=== PATIENT | female | born 1980 | race Caucasian/White ===

== ENCOUNTER 2016-12-16 17:10 | Inpatient (IN) | payer MEDICAID ==
[~2016-12-16] VITALS: Ht 160 cm; Wt 59.0 kg
[~2016-12-16 17:10] MED LIST: ACYCLOVIR400 MG PO; BACTRIM DS1 TAB PO; CELEXA20 M1 OR; CELEXA40 M1 PO; ERRIN0.35 MG PO; HUMULI1 SC; HUMULIN R1 M1 SC; KEFLEX500 MG PO; LANTUS100 MG/ML SC; LIDOCAINE5 % EX; LISINOPRIL10 MG PO; LISINOPRIL2.5 MG PO; LISINOPRIL5 MG PO; LORTAB 5 OR; LORTAB 5-325 MG1 TAB PO; LORTAB 7.5 PO; NAPROSYN500 MG PO; NOVOLIN 70/30; NOVOLIN 70/30 SC; NOVOLIN R IJ; NOVOLOG MIX100 U/ML SC; TRAMADOL HCL50 MG PO; TYLENOL # 31 TA1 PO; ULTRAM50 M1 OR; ZESTRIL5 MG OR; ZYRTEC10 M2 PO; [UNRECOGNIZED DRUG - OTHER]; tylenol#3 PO
--- NOTE | 2016-12-16 17:10 | NUR ---
PT CARRIED TO ROOM 10 BY CHRISTINE. PT FOUND MOANING W/LABORED BREATHING IN HER RESIDENCE.
--- NOTE | 2016-12-16 17:25 | NUR ---
PT VOIDED APPROX 800ML YELLOW CLOUDY URINE IN BEDPAN PRIOR TO PLACEMENT OF ORO CATH.
[2016-12-16 18:03] LABS: HEMATOCRIT 46.6 % (37.0-47.0); IMMATURE GRANULOCYTES 3.2 % (0.0-1.0); MEAN CELL VOLUME 97.7 fL CALC (80.0-100.0); MEAN CORPUSCULAR HGB 33.5 pG CALC (26.0-32.0); MEAN CORPUSCULAR HGB CONC 34.3 g/L CALC (32.0-36.0); PLATELET COUNT 487 thou/uL (130-400); RED BLOOD COUNT 4.77 mill/uL (4.20-5.60)
[2016-12-16 18:17] LABS: URINE BILIRUBIN - DIPSTICK NEGATIVE (NEGATIVE); URINE BLOOD DIPSTICK LARGE (NEGATIVE); URINE CLARITY CLEAR; URINE COLOR YELLOW; URINE GLUCOSE - DIPSTICK >=1000 mg/dL (NEGATIVE); URINE KETONE >=80 mg/dL (NEGATIVE); URINE LEUK ESTERASE TRACE (NEGATIVE); URINE NITRITE - DIPSTICK NEGATIVE (Negative); URINE PROTEIN - DIPSTICK 30 mg/dL (NEG-TRACE); URINE SPECIFIC GRAVITY 1.025; URINE UROBILINOGEN - DIPSTICK 0.2 E.U./dL (0.2)
[2016-12-16 18:26] LABS: MANUAL DIFFERENTIAL YES
[2016-12-16 18:32] LABS: URINE RBC TNTC RBC/hpf (0-5); URINE SQUAMOUS EPITHELIAL CELL FEW EPI/hpf (0-FEW); URINE TRICHOMONAS FEW hpf
[2016-12-16 18:33] LABS: BARBITURATES NEGATIVE (NEGATIVE); COCAINE NEGATIVE (NEGATIVE); METHADONE NEGATIVE (NEGATIVE); OXCYCODONE NEGATIVE (NEGATIVE); TETRAHYDROCANNABIONOL NEGATIVE (NEGATIVE); TRICYLIC ANTIDEPRESSANTS NEGATIVE (NEGATIVE)
[2016-12-16 18:39] LABS: BAND 5 % (0-8)
[2016-12-16 18:43] LABS: ALBUMIN 4.9 g/dL (3.2-5.0); ALKALINE PHOSPHATASE 178 u/l (38-126); BILIRUBIN, TOTAL 0.4 mg/dL (0.0-1.4); BUN 10 mg/dL (7-17); BUN/CREATININE RATIO 11 (12-20 (CALC)); CALCIUM 8.8 mg/dL (8.4-10.2); CHLORIDE 103 mmol/l (95-108); CREATININE 0.9 mg/dL (0.5-1.0); GFR > 60 ML/MIN (>=60 (CALC)); GFR FOR AFR.AMER. > 60 ML/MIN (>=60 (CALC)); POTASSIUM 4.5 mmol/l (3.5-5.1); SGOT/AST 17 u/l (14-36); SGPT/ALT 29 u/l (9-52); SODIUM 136 mmol/l (137-146); TOTAL PROTEIN 7.6 g/dL (6.3-8.2)
[2016-12-16 18:46] LABS: ANION GAP 33 (6-22 (CALC)); CARBON DIOXIDE < 5 mmol/l (22-30); GLUCOSE 573 mg/dL (65-105)
--- NOTE | 2016-12-16 18:50 | NUR ---
IV SITE TO RAC INFILTRATED. LABORED BREATHING. MD AT BEDSIDE PLACING CENTRAL RIGHT SUBCLAVIAN LINE.
[2016-12-16 19:01] LABS: MYOGLOBIN 33 ng/mL (0 - 62)
--- NOTE | 2016-12-16 19:29 | NUR ---
REPORT PROVIDED TO ALEXEY CAUSEY.
--- NOTE | 2016-12-16 19:30 | NUR ---
REPORT RECEIVED CARE ASSUMED. PATIENT RESTING ON STRETCHER. AWAKENS TO NAME, HOWEVER IS QUICK TO DRIFT OFF TO SLEEP. ACCU CHECK 418. PATIENT TO BE ADMITTED. SIG OTHER INFORMED OF PLAN OF CARE.
--- NOTE | 2016-12-16 20:05 | NUR ---
REPORT CALLED TO LETICIA. PATIENT READIED FOR TRANSPORT TO FLOOR.
--- NOTE | 2016-12-16 20:30 | NUR ---
MEDICATED PER MD ORDERS. BELONGINGS SENT WITH SO.
--- NOTE | 2016-12-16 20:33 | NUR ---
ACCU CHECK 296. INSULIN GTT STARTED AT 3 UNITS/HOUR PER SLIDING SCALE. WILL MONITOR FOR EFFECT.
--- NOTE | 2016-12-16 20:35 | NUR ---
ORO BAG EMPTIED OF 1450ML CLEAR YELLOW URINE.
--- NOTE | 2016-12-16 20:40 | NUR ---
36 yr old white female admitted icu5 per stretcher from er. transferred x4 to bed. pt very lethargic. does not answer questions asked. environmental monitoring technician shows sinus tach. rt tlc in place. rl bolus & insulin gtt conts. finley cath in place draining lg amt yellow urine. unable to obtain hx from pt. history obtained per fiance, er record & old chart. oriented to room. fall precautions initiated.
--- NOTE | 2016-12-16 20:45 | NUR ---
PATIENT TO FLOOR, ON MONMITOR, VIA STRETCHER, WITH RN
[2016-12-16 21:00] VITALS: BP 118/76
[2016-12-16 21:15] VITALS: BP 126/74
--- NOTE | 2016-12-16 21:15 | NUR ---
multi visitors @ bedside.
[2016-12-16 21:30] VITALS: BP 142/75
--- NOTE | 2016-12-16 21:30 | NUR ---
jossy admits "no more insulin @ home. last dose was @ 10 this morning. had an appt yesterday but the drs office cancelled it." he also admits she goes to the clinic on [facility].
[2016-12-16 21:45] VITALS: BP 154/71
[2016-12-16 21:59] VITALS: BP 140/65
--- NOTE | 2016-12-16 22:00 | NUR ---
eyes closed. cont to be tachypnic. no distress. finley conts to drain well. monitor shows sinus tach.
--- NOTE | 2016-12-16 23:05 | NUR ---
blood drawn & sent to lab.
[2016-12-16 23:44] LABS: BUN 6 mg/dL (7-17); BUN/CREATININE RATIO 12 (12-20 (CALC)); CALCIUM 6.9 mg/dL (8.4-10.2); CREATININE 0.5 mg/dL (0.5-1.0); GFR > 60 ML/MIN (>=60 (CALC)); GFR FOR AFR.AMER. > 60 ML/MIN (>=60 (CALC)); GLUCOSE 282 mg/dL (65-105); POTASSIUM 3.1 mmol/l (3.5-5.1); SODIUM 142 mmol/l (137-146)
[2016-12-16 23:55] LABS: ANION GAP 24 (6-22 (CALC))
[2016-12-16 23:56] LABS: CARBON DIOXIDE 6 mmol/l (22-30); CHLORIDE 115 mmol/l (95-108)
[2016-12-17] VITALS (12 sets, daily range): BP systolic 102–131; BP diastolic 48–80
--- NOTE | 2016-12-17 00:02 | NUR ---
lab results rec'd. dr baer notified. no new orders.
--- NOTE | 2016-12-17 00:45 | NUR ---
spoke with katina @ [facility] & requested potassium to be verified.
--- NOTE | 2016-12-17 01:04 | NUR ---
med verified per pharm. supervisor cooler service notified of need for med.
--- NOTE | 2016-12-17 02:00 | NUR ---
eyes remain closed. no apparent distress. mid level practitioner shows sinus rhythm.
--- NOTE | 2016-12-17 04:00 | NUR ---
blood drawn & sent to lab.
[2016-12-17 04:11] LABS: HEMATOCRIT 33.9 % (37.0-47.0); HEMOGLOBIN 12.5 g/dl (12.0-16.0); MEAN CELL VOLUME 90.4 fL CALC (80.0-100.0); MEAN CORPUSCULAR HGB 33.3 pG CALC (26.0-32.0); MEAN CORPUSCULAR HGB CONC 36.9 g/L CALC (32.0-36.0); RED BLOOD COUNT 3.75 mill/uL (4.20-5.60); RED CELL DISTRI WIDTH 11.7 % (11.5-15.5)
[2016-12-17 04:33] LABS: ALBUMIN 2.9 g/dL (3.2-5.0); BUN 5 mg/dL (7-17); CALCIUM 7.5 mg/dL (8.4-10.2); CARBON DIOXIDE 12 mmol/l (22-30); CHLORIDE 115 mmol/l (95-108); CREATININE 0.5 mg/dL (0.5-1.0); GFR > 60 ML/MIN (>=60 (CALC)); GFR FOR AFR.AMER. > 60 ML/MIN (>=60 (CALC)); GLUCOSE 279 mg/dL (65-105); MAGNESIUM 1.3 mg/dL (1.6-2.3); POTASSIUM 3.3 mmol/l (3.5-5.1); SODIUM 141 mmol/l (137-146)
--- NOTE | 2016-12-17 05:50 | NUR ---
dark soda offered. took few sips. denied nausea. returned to sleep quickly.
--- NOTE | 2016-12-17 06:10 | NUR ---
verito @ [facility] called. this global technical writer requested mag to be verified. verito informed this global technical writer "will take care of that for you."
--- NOTE | 2016-12-17 06:19 | NUR ---
supervisor beehive kiln called this machine sign writer. she attempted to call marquise(pharmacist detonator assembler), x4 for deidre because all of supply was used that was available for her to give. no answer on his phone. she then called matt. she admitted she was out of town on convention. matt suggested dr baer change ivf or wait for pharmacist to come in. will wait for pharmacist.
--- NOTE | 2016-12-17 07:35 | NUR ---
ACCU CHECK 288; INSULIN GTT DECREASE TO 3 UNITS/HR ORDERED; PT LETHARGIC/AROUSABLE AT TIME; WILL CONTINUE TO MONITOR.
--- NOTE | 2016-12-17 09:13 | NUR ---
PT AROUSABLE; ORIENTED TO X2; REORIENTATION SUCCESSFUL; WHEN PT ASKED IF SHE REMEMBERED WHAT HAPPEN, PT STATES, "NO AND I DON'T WANT TO." IVF INFUSING WITHOUT DIFFICULTY; PT TOOK PO MEDS WITHOUT INCIDENT; SR 62 ON MONITOR; CALL LOWERY WITHIN REACH; WILL CONTINUE TO MONITOR.
[2016-12-17 10:35] LABS: ALBUMIN 2.7 g/dL (3.2-5.0); BUN 5 mg/dL (7-17); CALCIUM 7.7 mg/dL (8.4-10.2); CARBON DIOXIDE 15 mmol/l (22-30); CHLORIDE 114 mmol/l (95-108); CREATININE 0.5 mg/dL (0.5-1.0); GFR > 60 ML/MIN (>=60 (CALC)); GFR FOR AFR.AMER. > 60 ML/MIN (>=60 (CALC)); GLUCOSE 279 mg/dL (65-105); MAGNESIUM 2.3 mg/dL (1.6-2.3); POTASSIUM 3.4 mmol/l (3.5-5.1); SODIUM 139 mmol/l (137-146)
--- NOTE | 2016-12-17 10:35 | NUR ---
DR. BONILLA IN TO SEE PT
[2016-12-17] MEDS ORDERED: NOVOLOG FL100 UNIT/M SC (10:37)
[2016-12-17] MEDS ORDERED: LEVEMIR FL100 UNIT/M SC (10:37)
--- NOTE | 2016-12-17 10:49 | NUR ---
VISITORS IN WITH PT
--- NOTE | 2016-12-17 11:17 | NUR ---
PT GIVEN LEVEMIR 20 UNITS AND NOVOLOG 5 UNITS LT ARM SQ ORDERED; PT TOLERATING LIQUIDS WELL; CALL LOWERY WITHIN REACH; WILL CONTINUE TO MONITOR.
--- NOTE | 2016-12-17 12:39 | NUR ---
ACCU CHECK 260; INSULIN GTT STOPPED AT THIS TIME; ORO REMOVED PER MD ORDER; EMOTIED 600 ML OF YELLOW URINE; PT TOLERATED 25% LUNCH WELL; CALL LOWERY WITHIN REACH; WILL CONTINUE TO MONITOR.
--- NOTE | 2016-12-17 13:00 | NUR ---
REPORT CALLED TO Tamy FINCH LPN
--- NOTE | 2016-12-17 13:45 | NUR ---
PT TO ROOM 290 VIA WC; VSS; IVF INFUSING WITHOUT DIFFICULTY;
--- NOTE | 2016-12-17 15:57 | NUR ---
INFORMED PT OF VIDA WANTING TO VISIT WITH HER BEFORE GOING TO WORK. CONTINUE TO OSBERVE AND MONITOR.
--- NOTE | 2016-12-17 17:34 | NUR ---
PT IS RELAXING IN BED WITH NO DISTRESS NOTED. IV SITE IS FREE FROM REDNESS OR EDEMA. CONTINUE TO OSBERVE AND MONITOR.,
[2016-12-17 17:40] LABS: ANION GAP 13 (6-22 (CALC)); BUN 5 mg/dL (7-17); BUN/CREATININE RATIO 11 (12-20 (CALC)); CARBON DIOXIDE 17 mmol/l (22-30); CHLORIDE 112 mmol/l (95-108); CREATININE 0.5 mg/dL (0.5-1.0); GFR > 60 ML/MIN (>=60 (CALC)); GFR FOR AFR.AMER. > 60 ML/MIN (>=60 (CALC)); GLUCOSE 109 mg/dL (65-105); POTASSIUM 2.7 mmol/l (3.5-5.1); SODIUM 139 mmol/l (137-146)
--- NOTE | 2016-12-17 20:00 | NUR ---
PT RESTING IN SEMI FOWLERS POSITION;PT RECENTLY GOT A SHOWER AND STATES THAT SHE FEELS "MORE AWAKE NOW";LR INFUSING @ 125ML/HR WELL TO HER TRIPLE LUMEN IN HER RIGHT SUBCLAVIAN;ACCUCHECK OF 135 OBTAINED BY AGA AKHTAR;PT DENIES ANY PAIN OR DISCOMFORTS;ASSESSMENT COMPLETED;SKIN INTACT;PT DENIES ANY NEEDS AT THIS THIS TIME;SAFETY PRECAUTIONS REINFORCED;CALL LIGHT IN REACH;WILL CONTINUE TO MONITOR
--- NOTE | 2016-12-18 00:15 | NUR ---
PT APPEARS TO BE SLEEPING IN SEMI FOWLERS;NO S/S OF DISTRESS NOTED;RESPIRATIONS EVEN AND UNLABORED ON RA;IV FLUIDS INFUSING WELL TO RT SUBCLAVIN;BED IN LOWEST POSITION WITH CALL LIGHT IN REACH;WILL CONTINUE TO MONITOR
[2016-12-18 03:14] VITALS: BP 129/79
--- NOTE | 2016-12-18 03:14 | NUR ---
PT AMBULATED TO RESTROOM AND BACK TO BEDSIDE WITH STEADY GAIT;VS OBTAINED BY AGA AKHTAR;PT REPORTS FEELING WEAK AND IS VISIBLY PALE;ACCUCHECK OBTAINED READING 44;ORANGE JUICE,WILLA CRACKERS AND PEANUT BUTTER PROVIDED;ACCUCHECK TO BE RE-ASSESSED;PT DENIES ANY PAIN;IV FLUIDS INFUSING WELL;WRITTER AT BEDSIDE;WILL CONTINUE TO MONITOR
--- NOTE | 2016-12-18 04:20 | NUR ---
PT BS IS NOW 148;PT VERBALIZES THAT SHE "FEELS BETTER" AND IS "GONNA SLEEP";WILL CONTINUE TO MONITOR
[2016-12-18 05:38] LABS: HEMATOCRIT 29.1 % (37.0-47.0); HEMOGLOBIN 10.8 g/dl (12.0-16.0); MEAN CELL VOLUME 89.5 fL CALC (80.0-100.0); MEAN CORPUSCULAR HGB 33.2 pG CALC (26.0-32.0); MEAN CORPUSCULAR HGB CONC 37.1 g/L CALC (32.0-36.0); RED BLOOD COUNT 3.25 mill/uL (4.20-5.60)
[2016-12-18 06:07] LABS: ALBUMIN 2.3 g/dL (3.2-5.0); BUN 5 mg/dL (7-17); CALCIUM 7.2 mg/dL (8.4-10.2); CARBON DIOXIDE 21 mmol/l (22-30); CHLORIDE 113 mmol/l (95-108); CREATININE 0.4 mg/dL (0.5-1.0); GFR > 60 ML/MIN (>=60 (CALC)); GFR FOR AFR.AMER. > 60 ML/MIN (>=60 (CALC)); GLUCOSE 193 mg/dL (65-105); MAGNESIUM 1.6 mg/dL (1.6-2.3); POTASSIUM 2.8 mmol/l (3.5-5.1); SODIUM 140 mmol/l (137-146)
--- NOTE | 2016-12-18 07:00 | NUR ---
SHIFT CHANGE REPORT FROM JUAN BROWN AWAKE ALERT AND ORIENTED SITTING UP IN BED, NO C/O DISCOMFORT, ALL NEEDS ADDRESSED, CALL LOWERY IN REACH.
[2016-12-18 08:51] VITALS: BP 118/65
[2016-12-18 10:32] LABS: CHOLESTEROL HDL RATIO 1.9 (<4.4 (CALC))
--- NOTE | 2016-12-18 12:04 | NUR ---
SITTING UP IN BED HAVING MEAL, ALL NEEDS MET/ADDRESSED, CALL LOWERY IN REACH.
--- NOTE | 2016-12-18 12:21 | NUR ---
PLANT GENERAL MANAGER KARY RECOMMENDED 1500 ADA DIET, DR MONTES & MARTHA NOTIFIED, OK CHANGE.
--- NOTE | 2016-12-18 14:25 | NUR ---
PT REQUEST FOR JUAN SANDY NOT TO VISIT HER ROOM, ADVISED PT TO CALL THIS PERSON AND INFORM HIM NOT TO COME TO ROOM AND IF HE COMES TO INFORM US AND WE WILL ASK SECURITY TO HAVE HIM LEAVE IF HE CAUSES ANY TROUBLE. PT DID NOT WANT TO CHANGE ROOM WHEN GIVEN THE OPTION BUT STOP SIGN PLACED ON DOOR.
[2016-12-18 16:23] VITALS: BP 141/78
--- NOTE | 2016-12-18 17:00 | NUR ---
PT REPORT CENTRAL LINE CATHETER WAS PARTIALLY DISLODGED DURING SHOWER, RADIOLOGY NOTIFIED IMMEDIATELY FOR ASSESSMENT, CXR DONE, CATHETER STILL IN PLACE. DRESSING CHANGED AFTER PT INITIALLY REFUSED TO HAVE IT CHANGED BUT CONSENTED AFTER GIVEN EDUCATION ON RISK OF CENTRAL LINE ASSOCIATED INFECTION.
[2016-12-18 17:38] LABS: ANION GAP 12 (6-22 (CALC)); BUN 6 mg/dL (7-17); BUN/CREATININE RATIO 11 (12-20 (CALC)); CALCIUM 8.3 mg/dL (8.4-10.2); CARBON DIOXIDE 26 mmol/l (22-30); CHLORIDE 106 mmol/l (95-108); CREATININE 0.5 mg/dL (0.5-1.0); GFR > 60 ML/MIN (>=60 (CALC)); GFR FOR AFR.AMER. > 60 ML/MIN (>=60 (CALC)); GLUCOSE 264 mg/dL (65-105); POTASSIUM 3.9 mmol/l (3.5-5.1); SODIUM 139 mmol/l (137-146)
[2016-12-18 19:30] VITALS: BP 119/79
--- NOTE | 2016-12-18 20:00 | NUR ---
PT IN BED WATCHING TV A/O X3, RESPIRATIONS EVEN AND UNLABORED. DENIES PAIN OR DISCOMFORT. ACCUCHECK 257, LR INFUSING TO RIGHT SUBCLAVIAN TRIPPLE LUMEN CENTRAL LINE. ENCOURAGED TO USE CALL LIGHT FOR ASSISTANCE, WILL CONTINUE TO MONITOR.
--- NOTE | 2016-12-19 | NUR ---
IN SEMIFOWLERS WITH EYES CLOSED, RESPIRAITONS EVEN AND UNLABORED.
[2016-12-19 04:00] VITALS: BP 131/81
--- NOTE | 2016-12-19 04:39 | NUR ---
OOB TO BATHROOM WITH STEADY GAIT, VOICES NO CONCERNS. A/O X3, ENCOURAGED TO USE CALL LIGHT FOR ASSISTANCE.
--- NOTE | 2016-12-19 07:15 | NUR ---
REPORT RECEIVED FROM ARIS ROBLES. PT SITTING UPRIGHT IN BED. DENIES COMPLAINTS. STATES "IM FEELING BETTER THAN I HAVE." PLAN OF CARE DISCUSSED. REPORTING OF CONCERNS ENCOURAGED. CALL LIGHT REVIEWED AND IN REACH. PT STATES UNDERSTANDING.
[2016-12-19 07:51] VITALS: BP 148/89
--- NOTE | 2016-12-19 08:34 | NUR ---
PT REQUESTS NO PHONE CALLS AND TO BED REMOVED FROM REGISTRY. PT INFORMED ABOUT THIS PROCESS. PT STATES UNDERSTANDING. REGISTRATION NOTIFIED.
--- NOTE | 2016-12-19 10:00 | NUR ---
DR. PARK IN TO SEE PT AT THIS TIME.
[2016-12-19 10:13] LABS: HEMATOCRIT 32.3 % (37.0-47.0); HEMOGLOBIN 11.5 g/dl (12.0-16.0); MEAN CELL VOLUME 92.6 fL CALC (80.0-100.0); MEAN CORPUSCULAR HGB CONC 35.6 g/L CALC (32.0-36.0); RED BLOOD COUNT 3.49 mill/uL (4.20-5.60); RED CELL DISTRI WIDTH 12.5 % (11.5-15.5)
[2016-12-19 10:31] LABS: ANION GAP 12 (6-22 (CALC)); BUN 8 mg/dL (7-17); BUN/CREATININE RATIO 18 (12-20 (CALC)); CALCIUM 8.1 mg/dL (8.4-10.2); CARBON DIOXIDE 26 mmol/l (22-30); CHLORIDE 100 mmol/l (95-108); CREATININE 0.4 mg/dL (0.5-1.0); GFR > 60 ML/MIN (>=60 (CALC)); GFR FOR AFR.AMER. > 60 ML/MIN (>=60 (CALC)); POTASSIUM 3.6 mmol/l (3.5-5.1); SODIUM 134 mmol/l (137-146)
[2016-12-19 10:50] LABS: GLUCOSE 456 mg/dL (65-105)
[2016-12-19] MEDS ORDERED: LEVEMIR100 UNIT/M SC (12:42)
[2016-12-19] MEDS ORDERED: NOVOLOG100 UNIT/M SC (12:42)
[2016-12-19] MEDS ORDERED: KEFLEX500 MG PO (12:43)
--- NOTE | 2016-12-19 14:09 | NUR ---
RIGHT SUBCLAVIAN CENTRAL LINE D/C'D. TIP OF CATHETER INTACT. MEASUREMENTS NOT AVAILABLE ON LINE. GAUZE DRESSING APPLIED AND PRESSURE HELD FOR 5 MINUTES. PT TOELRATED WELL.
--- NOTE | 2016-12-19 14:19 | NUR ---
Discharge instructions given. Patient verbalizes understanding of same. Discharged in stable condition via Ambulatory to Home with friend. All belongings sent with pt.
== END 2016-12-19 14:18 | disposition home or self-care (01) | DRG 639 ==
LOC: ED 17:10 → ED-I 19:00 → ED 20:02 → ICU 20:03 → MS2 20:03
PROVIDERS: Emergency Medicine; Nurse Practitioner Family; ADMIT Internal Medicine; ATTEND Internal Medicine
PROC: 0T9B70Z Drainage of Bladder with Drainage Device, Via Natural or Artificial Opening (ICD-10-PCS; principal; 2016-12-16)
PROC: 02HV33Z Insertion of Infusion Device into Superior Vena Cava, Percutaneous Approach (ICD-10-PCS; 2016-12-16)
DX: E10.10 Type 1 diabetes mellitus with ketoacidosis without coma (principal); E10.649 Type 1 diabetes mellitus with hypoglycemia without coma; E83.42 Hypomagnesemia; I10 Essential (primary) hypertension; D64.9 Anemia, unspecified; A59.00 Urogenital trichomoniasis, unspecified; F17.210 Nicotine dependence, cigarettes, uncomplicated; E87.6 Hypokalemia; E83.39 Other disorders of phosphorus metabolism; Z91.14 Patient's other noncompliance with medication regimen; Z79.4 Long term (current) use of insulin

== ENCOUNTER 2017-01-28 13:21 | Inpatient (IN) | payer MEDICAID ==
[~2017-01-28] VITALS: Ht 160 cm; Wt 61.0 kg
[2017-01-28] VITALS (12 sets, daily range): BP systolic 93–114; BP diastolic 45–57
[~2017-01-28 13:21] MED LIST changes: +LEVEMIR FL100 UNIT/M SC; +LEVEMIR100 UNIT/M SC; +NOVOLOG FL100 UNIT/M SC; +NOVOLOG100 UNIT/M SC
[2017-01-28 14:44] LABS: HEMOGLOBIN 13.8 g/dl (12.0-16.0); IMMATURE GRANULOCYTES 2.2 % (0.0-1.0); MEAN CELL VOLUME 101.7 fL CALC (80.0-100.0); MEAN CORPUSCULAR HGB 34.2 pG CALC (26.0-32.0); MEAN CORPUSCULAR HGB CONC 33.7 g/L CALC (32.0-36.0); NEUT# 26.94 thou/uL (2.00-7.15); RED BLOOD COUNT 4.03 mill/uL (4.20-5.60)
[2017-01-28 14:52] LABS: BARBITURATES NEGATIVE (NEGATIVE); COCAINE NEGATIVE (NEGATIVE); METHADONE NEGATIVE (NEGATIVE); OXCYCODONE NEGATIVE (NEGATIVE); TETRAHYDROCANNABIONOL NEGATIVE (NEGATIVE); TRICYLIC ANTIDEPRESSANTS NEGATIVE (NEGATIVE)
[2017-01-28 14:58] LABS: ALBUMIN 4.5 g/dL (3.2-5.0); ALKALINE PHOSPHATASE 199 u/l (38-126); BILIRUBIN, TOTAL 0.8 mg/dL (0.0-1.4); BUN 25 mg/dL (7-17); BUN/CREATININE RATIO 25 (12-20 (CALC)); CALCIUM 9.9 mg/dL (8.4-10.2); CHLORIDE 96 mmol/l (95-108); GFR > 60 ML/MIN (>=60 (CALC)); GFR FOR AFR.AMER. > 60 ML/MIN (>=60 (CALC)); SGOT/AST 27 u/l (14-36); SGPT/ALT 62 u/l (9-52); SODIUM 136 mmol/l (137-146); TOTAL PROTEIN 6.7 g/dL (6.3-8.2)
[2017-01-28 15:07] LABS: ANION GAP 40 (6-22 (CALC)); CARBON DIOXIDE 7 mmol/l (22-30); GLUCOSE 982 mg/dL (65-105); POTASSIUM 6.7 mmol/l (3.5-5.1)
[2017-01-28 16:49] LABS: MAGNESIUM 2.4 mg/dL (1.6-2.3)
[2017-01-28 21:50] LABS: HEMATOCRIT 36.8 % (37.0-47.0); HEMOGLOBIN 13.1 g/dl (12.0-16.0); MEAN CELL VOLUME 95.6 fL CALC (80.0-100.0); MEAN CORPUSCULAR HGB CONC 35.6 g/L CALC (32.0-36.0); NEUT# 18.93 thou/uL (2.00-7.15); RED BLOOD COUNT 3.85 mill/uL (4.20-5.60); RED CELL DISTRI WIDTH 12.1 % (11.5-15.5)
[2017-01-28 22:06] LABS: BUN 22 mg/dL (7-17); BUN/CREATININE RATIO 30 (12-20 (CALC)); CARBON DIOXIDE 17 mmol/l (22-30); CREATININE 0.7 mg/dL (0.5-1.0); GFR > 60 ML/MIN (>=60 (CALC)); GFR FOR AFR.AMER. > 60 ML/MIN (>=60 (CALC)); GLUCOSE 230 mg/dL (65-105); POTASSIUM 4.9 mmol/l (3.5-5.1)
[2017-01-28 22:11] LABS: ANION GAP 20 (6-22 (CALC)); CHLORIDE 115 mmol/l (95-108); SODIUM 147 mmol/l (137-146)
[2017-01-29] VITALS (11 sets, daily range): BP systolic 84–125; BP diastolic 43–75
[2017-01-29 05:47] LABS: HEMATOCRIT 35.6 % (37.0-47.0); HEMOGLOBIN 12.5 g/dl (12.0-16.0); IMMATURE GRANULOCYTES 0.6 % (0.0-1.0); MEAN CELL VOLUME 96.2 fL CALC (80.0-100.0); MEAN CORPUSCULAR HGB 33.8 pG CALC (26.0-32.0); MEAN CORPUSCULAR HGB CONC 35.1 g/L CALC (32.0-36.0); NEUT# 16.73 thou/uL (2.00-7.15); RED BLOOD COUNT 3.7 mill/uL (4.20-5.60); RED CELL DISTRI WIDTH 12.3 % (11.5-15.5)
[2017-01-29 06:42] LABS: ANION GAP 14 (6-22 (CALC)); BUN 21 mg/dL (7-17); BUN/CREATININE RATIO 30 (12-20 (CALC)); CALCIUM 9.2 mg/dL (8.4-10.2); CARBON DIOXIDE 22 mmol/l (22-30); CHLORIDE 113 mmol/l (95-108); CREATININE 0.7 mg/dL (0.5-1.0); GFR > 60 ML/MIN (>=60 (CALC)); GFR FOR AFR.AMER. > 60 ML/MIN (>=60 (CALC)); GLUCOSE 185 mg/dL (65-105); POTASSIUM 4.3 mmol/l (3.5-5.1); SODIUM 145 mmol/l (137-146)
[2017-01-29] MEDS ORDERED: LEVEMIR100 UNIT/M SC (14:52)
[2017-01-29 15:27] LABS: URINE BILIRUBIN - DIPSTICK NEGATIVE (NEGATIVE); URINE BLOOD DIPSTICK LARGE (NEGATIVE); URINE CLARITY CLEAR; URINE COLOR YELLOW; URINE GLUCOSE - DIPSTICK >=1000 mg/dL (NEGATIVE); URINE KETONE 15 mg/dL (NEGATIVE); URINE LEUK ESTERASE NEGATIVE (NEGATIVE); URINE NITRITE - DIPSTICK NEGATIVE (Negative); URINE PH 5.5 (4.5-8.0); URINE PROTEIN - DIPSTICK NEGATIVE (NEG-TRACE); URINE SPECIFIC GRAVITY 1.015; URINE UROBILINOGEN - DIPSTICK 0.2 E.U./dL (0.2)
[2017-01-29 22:42] LABS: URINE RBC 25-50 RBC/hpf (0-5); URINE SQUAMOUS EPITHELIAL CELL FEW EPI/hpf (0-FEW); URINE YEAST FEW hpf
== END 2017-01-29 16:50 | disposition home or self-care (01) | DRG 639 ==
LOC: ED 13:21 → ED-I 15:30 → ED 16:31 → ICU 16:32
PROVIDERS: Emergency Medicine; ADMIT Internal Medicine; ATTEND Internal Medicine
PROC: 0T9B70Z Drainage of Bladder with Drainage Device, Via Natural or Artificial Opening (ICD-10-PCS; principal; 2017-01-28)
PROC: 02HV33Z Insertion of Infusion Device into Superior Vena Cava, Percutaneous Approach (ICD-10-PCS; 2017-01-28)
DX: E10.10 Type 1 diabetes mellitus with ketoacidosis without coma (principal); I10 Essential (primary) hypertension; F15.10 Other stimulant abuse, uncomplicated; F17.210 Nicotine dependence, cigarettes, uncomplicated; Z79.4 Long term (current) use of insulin; Z91.14 Patient's other noncompliance with medication regimen; Z91.5 Personal history of self-harm
CPT/HCPCS: J1650; J2060

== ENCOUNTER 2017-03-02 12:53 | Emergency (ER) | payer MEDICAID ==
[~2017-03-02] VITALS: Ht 160 cm; Wt 68.0 kg
[2017-03-02 13:58] LABS: ALBUMIN 4.7 g/dL (3.2-5.0); ALKALINE PHOSPHATASE 80 u/l (38-126); ANION GAP 14 (6-22 (CALC)); BILIRUBIN, TOTAL 0.7 mg/dL (0.0-1.4); BUN 10 mg/dL (7-17); BUN/CREATININE RATIO 16 (12-20 (CALC)); CALCIUM 9.5 mg/dL (8.4-10.2); CARBON DIOXIDE 29 mmol/l (22-30); CHLORIDE 104 mmol/l (95-108); CREATININE 0.6 mg/dL (0.5-1.0); GFR > 60 ML/MIN (>=60 (CALC)); GFR FOR AFR.AMER. > 60 ML/MIN (>=60 (CALC)); GLUCOSE 65 mg/dL (65-105); POTASSIUM 3.1 mmol/l (3.5-5.1); SGOT/AST 18 u/l (14-36); SGPT/ALT 32 u/l (9-52); SODIUM 144 mmol/l (137-146); TOTAL PROTEIN 7.5 g/dL (6.3-8.2)
[2017-03-02 14:38] VITALS: BP 135/89
== END 2017-03-02 14:44 | disposition home or self-care (01) | DRG 639 ==
LOC: ED 12:53
PROVIDERS: Emergency Medicine
DX: E10.649 Type 1 diabetes mellitus with hypoglycemia without coma (principal); F17.210 Nicotine dependence, cigarettes, uncomplicated; Z79.4 Long term (current) use of insulin

== ENCOUNTER 2017-03-22 14:15 | Emergency (ER) | payer MEDICAID ==
[~2017-03-22] VITALS: Ht 160 cm; Wt 70.0 kg
[2017-03-22 14:41] LABS: HEMATOCRIT 44.9 % (37.0-47.0); HEMOGLOBIN 15.1 g/dl (12.0-16.0); IMMATURE GRANULOCYTES 0.3 % (0.0-1.0); MEAN CELL VOLUME 99.8 fL CALC (80.0-100.0); MEAN CORPUSCULAR HGB 33.6 pG CALC (26.0-32.0); MEAN CORPUSCULAR HGB CONC 33.6 g/L CALC (32.0-36.0); NEUT# 5.06 thou/uL (2.00-7.15); RED BLOOD COUNT 4.5 mill/uL (4.20-5.60); RED CELL DISTRI WIDTH 11.8 % (11.5-15.5)
[2017-03-22 15:01] LABS: ALKALINE PHOSPHATASE 87 u/l (38-126); ANION GAP 20 (6-22 (CALC)); BILIRUBIN, TOTAL 0.5 mg/dL (0.0-1.4); BUN 9 mg/dL (7-17); BUN/CREATININE RATIO 11 (12-20 (CALC)); CALCIUM 9.8 mg/dL (8.4-10.2); CARBON DIOXIDE 24 mmol/l (22-30); CHLORIDE 105 mmol/l (95-108); CREATININE 0.8 mg/dL (0.5-1.0); GFR > 60 ML/MIN (>=60 (CALC)); GFR FOR AFR.AMER. > 60 ML/MIN (>=60 (CALC)); SGOT/AST 27 u/l (14-36); SGPT/ALT 32 u/l (9-52); SODIUM 145 mmol/l (137-146)
[2017-03-22 15:10] LABS: GLUCOSE < 20 mg/dL (65-105)
[2017-03-22 15:13] LABS: MYOGLOBIN 43 ng/mL (0 - 62)
[2017-03-22 15:21] LABS: URINE BILIRUBIN - DIPSTICK NEGATIVE (NEGATIVE); URINE BLOOD DIPSTICK MODERATE (NEGATIVE); URINE COLOR YELLOW; URINE GLUCOSE - DIPSTICK >=1000 mg/dL (NEGATIVE); URINE KETONE TRACE mg/dL (NEGATIVE); URINE LEUK ESTERASE NEGATIVE (Negative); URINE NITRITE - DIPSTICK NEGATIVE (Negative); URINE PH 5.5 (4.5-8.0); URINE PROTEIN - DIPSTICK 30 mg/dL (NEG-TRACE); URINE SPECIFIC GRAVITY >=1.030; URINE UROBILINOGEN - DIPSTICK 0.2 E.U./dL (0.2)
[2017-03-22 15:36] LABS: COCAINE NEGATIVE (NEGATIVE); TETRAHYDROCANNABIONOL POSITIVE (NEGATIVE); URINE CLARITY CLOUDY
[2017-03-22 15:37] LABS: BARBITURATES NEGATIVE (NEGATIVE); METHADONE NEGATIVE (NEGATIVE); OXCYCODONE NEGATIVE (NEGATIVE); TRICYLIC ANTIDEPRESSANTS NEGATIVE (NEGATIVE)
[2017-03-22 15:54] LABS: URINE MUCUS FEW hpf (NONE-FEW); URINE RBC 25-50 RBC/hpf (0-5); URINE SQUAMOUS EPITHELIAL CELL FEW EPI/hpf (0-FEW)
[2017-03-22] MEDS ORDERED: LEVEMIR100 UNIT/M SC (16:37)
[2017-03-22 16:58] VITALS: BP 132/73
[2017-03-23] MEDS ORDERED: TRAMADOL HYDROC50 MG PO (18:31)
[2017-03-23] MEDS ORDERED: IBUPROFEN600 MG PO (18:31)
== END 2017-03-22 16:57 | disposition left against medical advice (07) | DRG 948 ==
LOC: ED 14:15
PROVIDERS: Emergency Medicine
DX: R41.82 Altered mental status, unspecified (principal); E11.649 Type 2 diabetes mellitus with hypoglycemia without coma; Z79.4 Long term (current) use of insulin; F19.10 Other psychoactive substance abuse, uncomplicated; E87.6 Hypokalemia; E86.0 Dehydration; Z91.19 Patient's noncompliance with other medical treatment and regimen; F15.10 Other stimulant abuse, uncomplicated; Z85.841 Personal history of malignant neoplasm of brain

== ENCOUNTER 2017-03-23 16:58 | Emergency (ER) | payer MEDICAID ==
[~2017-03-23] VITALS: Ht 160 cm; Wt 68.0 kg
[2017-03-23] MEDS ORDERED: TRAMADOL HYDROC50 MG PO (18:31)
[2017-03-23] MEDS ORDERED: IBUPROFEN600 MG PO (18:31)
[2017-03-23 19:11] VITALS: BP 149/95
== END 2017-03-23 19:12 | disposition left against medical advice (07) | DRG 563 ==
LOC: ED 16:58
PROC: 2W3EX1Z Immobilization of Right Hand using Splint (ICD-10-PCS; principal; 2017-03-23)
DX: S62.396A Other fracture of fifth metacarpal bone, right hand, initial encounter for closed fracture (principal); R22.31 Localized swelling, mass and lump, right upper limb; Y04.0XXA Assault by unarmed brawl or fight, initial encounter; Y93.89 Activity, other specified; Y92.009 Unspecified place in unspecified non-institutional (private) residence as the place of occurrence of the external cause
CPT/HCPCS: J1610

== ENCOUNTER 2017-05-18 | Emergency (ER) | payer MEDICAID ==
[~2017-05-18] VITALS: Ht 160 cm; Wt 70.0 kg
[~2017-05-18] MED LIST changes: +IBUPROFEN600 MG PO; +TRAMADOL HYDROC50 MG PO
[2017-05-18] MEDS ORDERED: NOVOLIN R100 UNIT/M SC (00:39)
[2017-05-18 00:44] LABS: HEMATOCRIT 44.8 % (37.0-47.0); HEMOGLOBIN 15.1 g/dl (12.0-16.0); IMMATURE GRANULOCYTES 0.6 % (0.0-1.0); MEAN CELL VOLUME 98.7 fL CALC (80.0-100.0); MEAN CORPUSCULAR HGB 33.3 pG CALC (26.0-32.0); MEAN CORPUSCULAR HGB CONC 33.7 g/L CALC (32.0-36.0); NEUT# 10.76 thou/uL (2.00-7.15); RED BLOOD COUNT 4.54 mill/uL (4.20-5.60); RED CELL DISTRI WIDTH 13.1 % (11.5-15.5)
[2017-05-18 00:54] LABS: ALBUMIN 4.3 g/dL (3.2-5.0); ALKALINE PHOSPHATASE 151 u/l (38-126); ANION GAP 16 (6-22 (CALC)); BILIRUBIN, TOTAL 0.3 mg/dL (0.0-1.4); BUN 12 mg/dL (7-17); BUN/CREATININE RATIO 21 (12-20 (CALC)); CALCIUM 9.4 mg/dL (8.4-10.2); CARBON DIOXIDE 22 mmol/l (22-30); CHLORIDE 105 mmol/l (95-108); CREATININE 0.6 mg/dL (0.5-1.0); GFR > 60 ML/MIN (>=60 (CALC)); GFR FOR AFR.AMER. > 60 ML/MIN (>=60 (CALC)); GLUCOSE 144 mg/dL (65-105); POTASSIUM 3.3 mmol/l (3.5-5.1); SGOT/AST 39 u/l (14-36); SGPT/ALT 66 u/l (9-52); SODIUM 140 mmol/l (137-146); TOTAL PROTEIN 7.2 g/dL (6.3-8.2)
[2017-05-18 01:32] VITALS: BP 142/83
== END 2017-05-18 00:45 | disposition left against medical advice (07) | DRG 639 ==
LOC: ED
PROVIDERS: Emergency Medicine
DX: E11.649 Type 2 diabetes mellitus with hypoglycemia without coma (principal); F17.210 Nicotine dependence, cigarettes, uncomplicated; Z79.4 Long term (current) use of insulin; Z91.14 Patient's other noncompliance with medication regimen; Z91.19 Patient's noncompliance with other medical treatment and regimen

== ENCOUNTER 2017-06-03 10:54 | Emergency (ER) | payer MEDICAID ==
[~2017-06-03] VITALS: Ht 160 cm; Wt 65.0 kg
[~2017-06-03 10:54] MED LIST changes: +NOVOLIN R100 UNIT/M SC
[2017-06-03 12:21] VITALS: BP 138/77
== END 2017-06-03 12:27 | disposition home or self-care (01) | DRG 639 ==
LOC: ED 10:54
DX: E11.649 Type 2 diabetes mellitus with hypoglycemia without coma (principal); Z79.4 Long term (current) use of insulin

== ENCOUNTER 2017-07-30 23:50 | Inpatient (IN) | payer MEDICAID ==
[~2017-07-30] VITALS: Ht 160 cm; Wt 72.0 kg
[2017-07-31] VITALS (18 sets, daily range): BP systolic 94–142; BP diastolic 49–80
--- NOTE | 2017-07-31 00:09 | NUR ---
ACCUCK ON ARRIVAL 225
--- NOTE | 2017-07-31 00:09 | NUR ---
PT IN ROOM 14 BY EMS FOR LOW BLOOD SUGAR. PT'S FAMILY GAVE PT INSULIN THIS MORNING BUT PT DID NOT EAT SO EMS WAS CALLED ON SEEN BUT AFTER TREATMENT PT WAS FINE AND REFUSED TRANSPORT. FAMILY AGAIN GAVE PT INSULIN AT DINNER TIME BUT PT AGAIN DID NOT EAT DUE TO NAUSEA
--- NOTE | 2017-07-31 01:02 | NUR ---
PCXR COMPLETED. LAB AT BEDSIDE
--- NOTE | 2017-07-31 01:14 | NUR ---
ACCK 205. PT UP TO BR TO VOID.
[2017-07-31 01:16] LABS: HEMATOCRIT 41.6 % (37.0-47.0); HEMOGLOBIN 14.4 g/dl (12.0-16.0); IMMATURE GRANULOCYTES 1.1 % (0.0-1.0); MEAN CELL VOLUME 96.7 fL CALC (80.0-100.0); MEAN CORPUSCULAR HGB 33.5 pG CALC (26.0-32.0); MEAN CORPUSCULAR HGB CONC 34.6 g/L CALC (32.0-36.0); NEUT# 25.73 thou/uL (2.00-7.15); RED BLOOD COUNT 4.3 mill/uL (4.20-5.60); RED CELL DISTRI WIDTH 11.7 % (11.5-15.5)
[2017-07-31 01:33] LABS: ALBUMIN 3.8 g/dL (3.2-5.0); ALKALINE PHOSPHATASE 104 u/l (38-126); ANION GAP 15 (6-22 (CALC)); BILIRUBIN, TOTAL 0.3 mg/dL (0.0-1.4); BUN 12 mg/dL (7-17); BUN/CREATININE RATIO 26 (12-20 (CALC)); CARBON DIOXIDE 25 mmol/l (22-30); CHLORIDE 104 mmol/l (95-108); CREATININE 0.4 mg/dL (0.5-1.0); GFR > 60 ML/MIN (>=60 (CALC)); GFR FOR AFR.AMER. > 60 ML/MIN (>=60 (CALC)); LIPASE 22 u/l (23-300); POTASSIUM 3.2 mmol/l (3.5-5.1); SGOT/AST 34 u/l (14-36); SGPT/ALT 39 u/l (9-52); SODIUM 141 mmol/l (137-146); TOTAL PROTEIN 6.4 g/dL (6.3-8.2)
--- NOTE | 2017-07-31 01:44 | NUR ---
LAB AT BEDSIDE TO DRAW CULTURES PRIOR TO ANTIBIOTICS
--- NOTE | 2017-07-31 01:58 | NUR ---
BP DOWN TO 79/42 HR 59 RR 15. PT RESTING. AWAKENS ON VERBAL STIM. DR TO BEDSIDE.
[2017-07-31 02:17] LABS: URINE BILIRUBIN - DIPSTICK NEGATIVE (NEGATIVE); URINE BLOOD DIPSTICK NEGATIVE (NEGATIVE); URINE COLOR YELLOW; URINE GLUCOSE - DIPSTICK >=1000 mg/dL (NEGATIVE); URINE KETONE TRACE mg/dL (NEGATIVE); URINE LEUK ESTERASE TRACE (NEGATIVE); URINE NITRITE - DIPSTICK NEGATIVE (Negative); URINE PROTEIN - DIPSTICK NEGATIVE (NEG-TRACE); URINE UROBILINOGEN - DIPSTICK 0.2 E.U./dL (0.2)
[2017-07-31 02:19] LABS: URINE CLARITY CLOUDY
[2017-07-31 02:26] LABS: COCAINE NEGATIVE (NEGATIVE); METHADONE NEGATIVE (NEGATIVE); TETRAHYDROCANNABIONOL NEGATIVE (NEGATIVE)
[2017-07-31 02:27] LABS: BARBITURATES NEGATIVE (NEGATIVE); OXCYCODONE NEGATIVE (NEGATIVE); TRICYLIC ANTIDEPRESSANTS NEGATIVE (NEGATIVE)
--- NOTE | 2017-07-31 02:32 | NUR ---
BP COMING UP. DR WANTED TO PLACE A CENTRAL LINE OR A EJ BUT PT REFUSED AND SAID SHE WOULD SIGN OUT. BP SLOWLY IMPROVING. IV FLUIDS INFUSING IN RIGHT THUMB. PT NOW EATING CRACKERS/JELLO AND POWERADE.
--- NOTE | 2017-07-31 02:41 | NUR ---
PT EATING. 2ND LITER UP AND INFUSING.
[2017-07-31 02:46] LABS: URINE BACTERIA FEW hpf; URINE RBC 0-2 RBC/hpf (0-5); URINE SQUAMOUS EPITHELIAL CELL MODERATE EPI/hpf (0-FEW)
[2017-07-31 02:47] LABS: URINE MUCUS FEW hpf (NONE-FEW); URINE TRICHOMONAS FEW hpf
--- NOTE | 2017-07-31 02:52 | NUR ---
DR CARMONA NOTIFIED OF TRICH IN URINE
--- NOTE | 2017-07-31 03:16 | NUR ---
BS RECHECK 241.
--- NOTE | 2017-07-31 03:35 | NUR ---
REPORT CALLED TO TRAVIS/ICU
--- NOTE | 2017-07-31 03:45 | NUR ---
TO ICU WITH PT/DEFIB/IV'S AND PUMP WITHOUT INCIDENT
--- NOTE | 2017-07-31 03:55 | NUR ---
RECEIVED FROM ER VIA STRETCHER ACCOMPANIED BY ER NURSE. PT OUT OF STRETCHER AMBULATING TO BED WITH STAND BY ASSISTNACE. IS DROWSY, ABLE TO STATE NAME AND , AGREES TO KATARINA HOSE. STRONG URINE ODOR NOTED, PT REFUSES TO GET WASHED UP AT THIS TIME, ASSISTED WITH TAKING OFF UNDER GARMENTS AND PLACED IN PERSONAL BELONGINS BAG. STRONG HAND TRACK LAYING EQUIPMENT OPERATOR FOLLOW DIRECTIONS. ASSESSMENT DONE THROUGH RECALL DUE TO PT BEING DROWSY AND NOT ABLE TO ANSWEAR QUESTIONS. DOES NOT KNOW LAST BM OR LMP. RESPIRATIONS EVEN AND UNLABORED, O2 SAT 100% ON RA. B/P 105/54, HR 72. TYPANIC TEMP 96.0. 3RD BOLUS NS 1000ML BAG INFUSING TO RIGHT THUMB WITH NO COMPLICATIONS. ACCUCHECK 305. BED ALARM APPLIED. WILL CONTINUE TOMONITOR.
--- NOTE | 2017-07-31 05:20 | NUR ---
RECTAL TEMP 96.9, ACCUCHECK 310.
--- NOTE | 2017-07-31 06:20 | NUR ---
ACCUCHECK 314
--- NOTE | 2017-07-31 06:50 | NUR ---
OOB TO BSC WITH MINIMAL ASSISTANCE, STEADY GAIT. VOIDING 800ML DARK YELLOW URINE, BACK TO BED. CALL LIGHT IN REACH. TOLERATING WATER.
[2017-07-31 06:52] LABS: HEMATOCRIT 41.1 % (37.0-47.0); HEMOGLOBIN 13.7 g/dl (12.0-16.0); MEAN CELL VOLUME 99.8 fL CALC (80.0-100.0); MEAN CORPUSCULAR HGB 33.3 pG CALC (26.0-32.0); MEAN CORPUSCULAR HGB CONC 33.3 g/L CALC (32.0-36.0); RED BLOOD COUNT 4.12 mill/uL (4.20-5.60); RED CELL DISTRI WIDTH 11.8 % (11.5-15.5)
[2017-07-31 07:00] LABS: BUN 10 mg/dL (7-17); BUN/CREATININE RATIO 23 (12-20 (CALC)); CARBON DIOXIDE 19 mmol/l (22-30); CHLORIDE 107 mmol/l (95-108); CREATININE 0.4 mg/dL (0.5-1.0); GFR > 60 ML/MIN (>=60 (CALC)); GFR FOR AFR.AMER. > 60 ML/MIN (>=60 (CALC)); SODIUM 139 mmol/l (137-146)
[2017-07-31 07:01] LABS: ANION GAP 18 (6-22 (CALC)); POTASSIUM 5.2 mmol/l (3.5-5.1)
--- NOTE | 2017-07-31 07:20 | NUR ---
pt resting in bed with eyes closed; easily aroused but does not make eye contact with caption writer; assessment completed at this time; pt alert and oriented; denies pain; no n/v noted; flat affect; caption writer spoke with pt/ pt admits to depression; admits to being depressed because "my kids aren't here with me"; admits to not having full custody of children; denies feelings of self harm; resp even and unlabored; lungs clear; skin color wnl; ra; hr reg; sr on monitor; strong pulses; no edema noted; bilat knee high stas hose intact; abd soft with bs present; pt admits to last bm 07/30/17; admits to voiding without pain or burning; no urine to inspect at this time; #20 in rh flushed and patent; ivf dc'd as per md orders; plan of care/ meds explained; accucheck 351; call light within reach; will continue to monitor
--- NOTE | 2017-07-31 08:10 | NUR ---
awake eating breakfast; no distress noted; pt offers no complaints; iv intact; sr on monitor; call light within reach; will continue to monitor
--- NOTE | 2017-07-31 08:40 | NUR ---
Dr Montoya at bedside to assess and discuss plan of care
--- NOTE | 2017-07-31 09:27 | NUR ---
BELLA Nunn notified of accucheck result of 427; orders received and placed on chart
--- NOTE | 2017-07-31 09:59 | NUR ---
awake in bed; offers no complaints; iv patent; abt infusing without complication; no redness or edema noted at site; st on monitor; polydipisia noted; po fluids provided; call light within reach; will continue to monitor
--- NOTE | 2017-07-31 11:52 | NUR ---
awake in bed; eating lunch; offers no complaints; no distress noted; denies pain; medicated with novolog as per orders for acchcueck of 497; iv flushed and patent; abt infusing without complication; no redness or edema noted at site; st on monitor; call light within reach; will continue to monitor
--- NOTE | 2017-07-31 13:40 | NUR ---
pt awake in bed; no distress noted; accucheck of 305; no interventions needed at current; iv patent; no redness or edema noted at site; st on monitor; pt refused heparin sq injection due to this staff writer not allowing pt to self administer; pt admits to giving injections (insulin) at same site (abd) because it's less painful; injection site rotation explained but pt continues to refuse heparin; deny needs; call light within reach; will continue to monitor
--- NOTE | 2017-07-31 14:28 | NUR ---
large incont of loose stool; pt bathe self; complete linen change; pt requesting tea; diabetic diet explained/unsweetened tea offered; will continue to monitor
--- NOTE | 2017-07-31 16:14 | NUR ---
pt resting in bed with eyes closed; no distress noted; resp even and unlabored; iv intact; sr/pac on monitor; call light within reach; will continue to monitor
--- NOTE | 2017-07-31 18:10 | NUR ---
pt sleeping; easily aroused; offers no complaints; iv intact; sb on monitor; bed in lowest position; call light within reach
--- NOTE | 2017-07-31 19:55 | NUR ---
NURSE TO NURSE REPORT GIVEN TO ABDIFATAH BLACKBURN.
--- NOTE | 2017-07-31 20:00 | NUR ---
ACCUCHECK 206
--- NOTE | 2017-07-31 20:10 | NUR ---
PT.ARRIVED TO THE FLOOR VIA WC ACCOMPANIED BY AGA. REPORT RECEIVED VIA TELEPHONE FROM ICU NURSE. PT.APPEARS TO BE IN STABLE CONDITION AT THIS TIME. V/S ARE BEING ASSESSED AND PT.ORIENTED TO ROOM. CALL LIGHT IS AT SIDE AND PT.INSTRUCTED TO CALL IF ANY NEEDS ARISE
--- NOTE | 2017-07-31 22:52 | NUR ---
PT. MEDICATED ORDERS PROVIDE, PT.JUST FINISHED EATING TURKEY SANDWICH, WILLA CRACKERS AND MILK. PT.REFUSED HEPARIN ORDERED. DENIES ANY OTHER NEEDS AT THIS TIME. LUNG SOUNDS ARE CLEAR, LOCX4, PT.STATES THAT HER HANDS ARE SWELLING, 1+EDEMA IN HANDS BILATERALLY NOTED. COPER HAND IN PLACE AND CALL LIGHT IS AT SIDE.
--- NOTE | 2017-07-31 23:50 | NUR ---
BLOOD SUGAR ASSESSED @200. CALL LIGHT W/IN REACH
[2017-08-01 00:17] VITALS: BP 110/70
--- NOTE | 2017-08-01 00:40 | NUR ---
BLOOD SUGAR ASSESSED @274. PT.IS SLEEPING AT THIS TIME. LIGHTS RETURNED OFF AND PT.INSTRUCTED TO CALL IF ANY NEEDS ARISE. CALL LIGHT W/IN REACH, NO S/S OF DISTRESS
[2017-08-01 04:30] VITALS: BP 117/70
--- NOTE | 2017-08-01 04:30 | NUR ---
V/S ASSESSED AND BLOOD SUGAR ASSESSED @130. PT.IS SLEEPING, DENIES ANY OTHER NEEDS AT THIS TIME.
--- NOTE | 2017-08-01 07:00 | NUR ---
RECEIVED BEDSIDE REPORT FROM MARIANA BLACKBURN. RESTING IN BED WITH EYES CLOSED, AWAKENS EASILY. RESPS EVEN AND UNLABORED ON ROOM AIR, TELE MONITOR IN PLACE. REFUSES TO HAVE AM LABS DRAWN, "I AMD SICK AND TIRED OF BEING POKED ALL THE TIME." PLAN OF CARE DISCUSSED. SAFETY PRECAUTIONS REINFORCED. BED IN LOWEST POSITION WITH WHEELS LOCKED. CALL LIGHT WITHIN REACH. ENCOURAGED PT TO CALL FOR ANY NEEDS.
--- NOTE | 2017-08-01 09:20 | NUR ---
IV site discontinued, cath intact. No edema , no redness, voices no discomfort.
--- NOTE | 2017-08-01 09:30 | NUR ---
PT LEFT AMA WITH VISITOR. ENCOURAGED PT TO STAY UNTIL DISCHARGED BY DR PARK. DR PARK NOTIFIED.
== END 2017-08-01 09:30 | disposition left against medical advice (07) | DRG 638 ==
LOC: ED 23:50 → ED-I 07-31 02:40 → ED 07-31 03:10 → ICU 07-31 03:11 → MS2 07-31 20:08
PROVIDERS: Family Medicine; ADMIT Internal Medicine; ATTEND Internal Medicine
DX: E10.10 Type 1 diabetes mellitus with ketoacidosis without coma (principal); A54.9 Gonococcal infection, unspecified; A59.00 Urogenital trichomoniasis, unspecified; F15.10 Other stimulant abuse, uncomplicated; Z53.20 Procedure and treatment not carried out because of patient's decision for unspecified reasons; Z79.4 Long term (current) use of insulin; Z91.14 Patient's other noncompliance with medication regimen

== ENCOUNTER 2017-08-12 00:20 | Inpatient (IN) | payer MEDICAID ==
[~2017-08-12] VITALS: Ht 160 cm; Wt 66.0 kg
[2017-08-12] VITALS (17 sets, daily range): BP systolic 102–143; BP diastolic 51–80
--- NOTE | 2017-08-12 00:30 | NUR ---
PATIENT TO ROOM 13. UNDRESSED INTO A GOWN. PLACED ON MONITOR. AWAITING MD CALDWELL.
--- NOTE | 2017-08-12 00:45 | NUR ---
ERP AT BEDSIDE.
--- NOTE | 2017-08-12 01:10 | NUR ---
RT AT BEDSIDE.
[2017-08-12 01:34] LABS: HEMATOCRIT 46.2 % (37.0-47.0); IMMATURE GRANULOCYTES 0.7 % (0.0-1.0); MEAN CELL VOLUME 103.4 fL CALC (80.0-100.0); MEAN CORPUSCULAR HGB 33.6 pG CALC (26.0-32.0); MEAN CORPUSCULAR HGB CONC 32.5 g/L CALC (32.0-36.0); NEUT# 9.67 thou/uL (2.00-7.15); RED BLOOD COUNT 4.47 mill/uL (4.20-5.60)
[2017-08-12 01:35] LABS: URINE BILIRUBIN - DIPSTICK NEGATIVE (NEGATIVE); URINE BLOOD DIPSTICK NEGATIVE (NEGATIVE); URINE CLARITY SL CLOUDY; URINE COLOR YELLOW; URINE GLUCOSE - DIPSTICK >=1000 mg/dL (NEGATIVE); URINE KETONE >=80 mg/dL (NEGATIVE); URINE LEUK ESTERASE NEGATIVE (NEGATIVE); URINE NITRITE - DIPSTICK NEGATIVE (Negative); URINE PH 5.5 (4.5-8.0); URINE PROTEIN - DIPSTICK NEGATIVE (NEG-TRACE); URINE UROBILINOGEN - DIPSTICK 0.2 E.U./dL (0.2)
[2017-08-12 01:40] LABS: BARBITURATES NEGATIVE (NEGATIVE); COCAINE NEGATIVE (NEGATIVE); METHADONE NEGATIVE (NEGATIVE); TETRAHYDROCANNABIONOL NEGATIVE (NEGATIVE); TRICYLIC ANTIDEPRESSANTS NEGATIVE (NEGATIVE)
[2017-08-12 01:41] LABS: OXCYCODONE NEGATIVE (NEGATIVE)
[2017-08-12 01:50] LABS: AMYLASE 101 u/l (30-110); BILIRUBIN, TOTAL 0.6 mg/dL (0.0-1.4); BUN 16 mg/dL (7-17); BUN/CREATININE RATIO 18 (12-20 (CALC)); CREATININE 0.9 mg/dL (0.5-1.0); GFR > 60 ML/MIN (>=60 (CALC)); GFR FOR AFR.AMER. > 60 ML/MIN (>=60 (CALC)); LIPASE 26 u/l (23-300); SGOT/AST 23 u/l (14-36); SGPT/ALT 42 u/l (9-52); SODIUM 133 mmol/l (137-146); TOTAL PROTEIN 7.5 g/dL (6.3-8.2)
[2017-08-12 01:58] LABS: POTASSIUM 5.9 mmol/l (3.5-5.1)
[2017-08-12 01:59] LABS: ALBUMIN 4.7 g/dL (3.2-5.0); ALKALINE PHOSPHATASE 190 u/l (38-126); CARBON DIOXIDE < 5 mmol/l (22-30); CHLORIDE 94 mmol/l (95-108)
--- NOTE | 2017-08-12 02:00 | NUR ---
PT REQUESTED PO FLUIDS, PER ERP ICE CHIPS. PROVIDED SAME.
--- NOTE | 2017-08-12 02:10 | NUR ---
PT INFORMED OF ADM.
--- NOTE | 2017-08-12 02:21 | NUR ---
INSULIN GTT AT 5 UNITS PER HOUR.
--- NOTE | 2017-08-12 02:35 | NUR ---
REPORT CALLED TO ANKUR BLACKBURN ICU
--- NOTE | 2017-08-12 02:50 | NUR ---
PT TO ICU WITH RN ON MONITOR, AND IV PUMP
--- NOTE | 2017-08-12 02:55 | NUR ---
PT. ARRIVES VIA STRETCHER FROM ER. AMBULATORY WITH STEADY GAIT FROM ER STRETCHER TO STANDING SCALE AND THEN TO ICU BED. PT. AWAKE, ALERT, ORIENTED X 3. SKIN WARM AND DRY. AFEBRILE. INTRODUCED TO CALL LIGHT AND BED CONTROLS. INSULIN DRIP INFUSING AT 5 UNITS/HR AT THIS TIME. RESPS ARE EVEN AND UNLABORED. BP STABLE. HR SLIGHTLY TACHY AT 104 ON ARRIVAL TO ICU, SINUS TACH. PT. DENIES PAIN OR NAUSEA AT THIS TIME. PULSES PRESENT X 4. CALL LIGHT WITHIN REACH. WILL CONTINUE TO ASSESS.
--- NOTE | 2017-08-12 04:01 | NUR ---
ACCUCHECK 372. INSULIN DRIP DECREASED TO 4 UNITS/HR.
--- NOTE | 2017-08-12 05:00 | NUR ---
ACCUCHECK NOW 239. WILL TITRATE DRIP ACCORDINGLY.
--- NOTE | 2017-08-12 06:01 | NUR ---
LAB AT BEDSIDE AT THIS TIME TO DRAW PT. ACCUCHECK IS NOW 240. INSULIN DRIP REMAINS AT 3 UNITS/HR.
[2017-08-12 06:40] LABS: BUN 12 mg/dL (7-17); BUN/CREATININE RATIO 17 (12-20 (CALC)); CREATININE 0.7 mg/dL (0.5-1.0); GFR > 60 ML/MIN (>=60 (CALC)); GFR FOR AFR.AMER. > 60 ML/MIN (>=60 (CALC)); SODIUM 137 mmol/l (137-146)
[2017-08-12 06:48] LABS: ANION GAP 25 (6-22 (CALC)); CARBON DIOXIDE 11 mmol/l (22-30); CHLORIDE 106 mmol/l (95-108); POTASSIUM 4.7 mmol/l (3.5-5.1)
--- NOTE | 2017-08-12 07:30 | NUR ---
PT RESTING IN BED DROWSY WITH EYES CLOSED, REPSONDS TO LIGHT VERBAL STIMULI, DENIES ANY COMPLAINTS, AM ASSESSMENT COMPLETED; LAB WORK REVIEWED, SEE INTERVENTIONS, HOURLY ACCU CHECKS CONTINUE RELATED TO INSULIN GTT PROTOCOL, NS AT [facility] INSULIN CURRENTLY AT 3 UNITS/HR; 0700 ACCU CHECK WAS 252, PT REMINDED OF NEED FOR HOURLY ACCU CHECKS WHILE ON GTT, VERBALIZES UNDERSTANDING; VS STABLE, PT AFEBRILE, TELE READING SR RATE IN THE 80'S, BP STABLE, CALL LOWERY WITHIN REACH, SAFETY MEASURES REINFORCED, WILL CONTINUE TO MONITOR,
--- NOTE | 2017-08-12 08:10 | NUR ---
ACCU CHECK 140 INSULIN GTT TITRATED ACCORDINGLY, MORE AWAKE TAKING CLEAR LIQUID DIET, WILL CONTINUE TO MONITOR.
--- NOTE | 2017-08-12 08:51 | NUR ---
VISITOR AT BEDSIDE.
--- NOTE | 2017-08-12 09:07 | NUR ---
PT DOZING INTERMITTENLY, IVF CONTINEU INSULIN GTT TITRATED PER ACCU CHECK RESULTS, CALL LOWERY WITHIN REACH
--- NOTE | 2017-08-12 10:00 | NUR ---
LAB AT BEDSIDE, FOR LAB DRAW, PT RESTING INSULIN GTT CONTINUES PER PROTOCOL.
[2017-08-12 10:39] LABS: ANION GAP 21 (6-22 (CALC)); BUN 9 mg/dL (7-17); BUN/CREATININE RATIO 13 (12-20 (CALC)); CHLORIDE 105 mmol/l (95-108); CREATININE 0.6 mg/dL (0.5-1.0); GFR > 60 ML/MIN (>=60 (CALC)); GFR FOR AFR.AMER. > 60 ML/MIN (>=60 (CALC)); POTASSIUM 5.1 mmol/l (3.5-5.1); SODIUM 136 mmol/l (137-146)
[2017-08-12 10:40] LABS: CARBON DIOXIDE 15 mmol/l (22-30)
--- NOTE | 2017-08-12 11:16 | NUR ---
accu check completed, lab work improved, awaiting MD rounds for further orders, Call finney within reach, Insulin gtt continues per protocol
[2017-08-12 11:57] LABS: ALKALINE PHOSPHATASE 101 u/l (38-126); BILIRUBIN, TOTAL 0.3 mg/dL (0.0-1.4); SGOT/AST 25 u/l (14-36); SGPT/ALT 30 u/l (9-52)
[2017-08-12 11:58] LABS: ALBUMIN 3.3 g/dL (3.2-5.0); TOTAL PROTEIN 5.8 g/dL (6.3-8.2)
--- NOTE | 2017-08-12 12:15 | NUR ---
ACCU CHECK COMPLETED INSULIN GTT CONTINUES PER PROTOCOL, IVF AT KVO RATE, PT DOZES INTERMITTENLY, DENIES ANY NEW COMPLAINTS, CALL LOWERY WITHIN REACH.
--- NOTE | 2017-08-12 13:44 | NUR ---
PT RESTING TOLERATING UNSWEET TEA WITH ARTIFICIAL SWEETENER, INSULIN GTT CONTINUES PER PROTOCOL, CALL LOWERY WITHIN REACH, VS REAMIN STABLE, TELE UNCHANGED, WILL CONTINUE TO MONITOR
--- NOTE | 2017-08-12 14:16 | NUR ---
WELDER AND FITTER FAVIAN HERE TO SEE PATIENT
--- NOTE | 2017-08-12 16:00 | NUR ---
INSULIN GTT ON HOLD, PT AWARE OF PLAN TO START LONG ACTING INSULIN AT 1700 AND PLANNED D/C TOMORROW IF TOLERATING DIET WELL, VERBALIZES UNDERSTANDING.
--- NOTE | 2017-08-12 16:50 | NUR ---
PT RESTING NEW ORDERS REC'D, CALL LOWERY WITHIN REACH, OFFERS NO NEW COMPLAINTS, WILL CONTINUE TO MONITOR.
--- NOTE | 2017-08-12 17:42 | NUR ---
SET UP ASSIST PROVIDED FOR PM MEAL, INSULIN GIVEN ORDERED, CALL LOWERY BALDO REACH, VOIDED LARGE AMOUNT CLEAR YELLOW URINE WITH SEDIMENT NOTED, WILL CONTINUE TO MONITOR.
--- NOTE | 2017-08-12 19:00 | NUR ---
PT RESTING IN BED. PT IS ALERT AND ORIENTED X3. PERRLA. RESP ARE EVEN AND UNLABORED. NO DISTRESS NOTED. LUNGS ARE CLEAR. HR REGULAR. SR ON MONITOR. PULSES PALPABLE THROUGHOUT. NO EDEMA NOTED. BS ACTIVE. PT WITH COMPLAINTS OF NAUSEA POST MEAL. DR BARAKAT NOTIFIED. #20 RAC. SALINE LOCKED NO REDNESS OR EDEMA NOTED. WILL CONTINUE TO MONITOR. CALL LIGHT IN REACH,
--- NOTE | 2017-08-12 20:58 | NUR ---
PT TO [facility] FLOOR TO SHOWER ACCOMPANIED BY FRIT MAKER.
--- NOTE | 2017-08-12 21:30 | NUR ---
PT RETURNED FROM [facility] VIA WC ACCOMPANIED BY SHIPPING RECEIVING CLERK.
--- NOTE | 2017-08-12 22:00 | NUR ---
PT RESTING IN BED WATCVHING TV. RESP ARE EVEN AND UNLABORED. NO DISTRESS NOTED. WILL CONTINUE TO MONITOR. CALL LIGHT IN REACH
[2017-08-13] VITALS (8 sets, daily range): BP systolic 119–146; BP diastolic 72–82
--- NOTE | 2017-08-13 | NUR ---
PT RESTING IN BED WITH EYES CLOSED. RESP ARE EVEN AND UNLABORED. NO DISTRESS NOTED. WILL CONTINUE TO MONITOR
--- NOTE | 2017-08-13 02:00 | NUR ---
PT RESTING IN BED WITH EYES CLOSED. RESP ARE EVEN AND UNLABORED. NO DISTRESS NOTED. WILL CONTINUE TO MONITOR
--- NOTE | 2017-08-13 04:00 | NUR ---
PT RESTING IN BED WITH EYES CLOSED. RESP ARE EVEN AND UNLABORED. NO DISTRESS NOTED. WILL CONTINUE TO MONITOR
--- NOTE | 2017-08-13 04:51 | NUR ---
LAB INTO DRAW AM LABS
--- NOTE | 2017-08-13 05:06 | NUR ---
PT REQUESTED TO NOT HAVE AM LABS DRAWN.
--- NOTE | 2017-08-13 06:00 | NUR ---
PT RESTING IN BED WITH EYES CLOSED. RESP ARE EVEN AND UNLABORED. NO DISZTRESS NOTED. WILL CONTINUE TO MONITOR
--- NOTE | 2017-08-13 07:20 | NUR ---
pt resting in bed with eyes closed; easily aroused; no distress noted; assessment completed at this time; pt alert and oriented; denies pain; no n/v noted; resp even and unlabored; lungs clear; skin color wnl; ra; hr reg; strong pulses; no edema noted; sr on monitor; abd soft with bs present; no bm noted per freelance copywriter; no urine to inspect at this time; pt denies burning or pain with urination; #22 flushed and patent to rac; no redness or edema noted at site; plan of care/am meds explained; accucheck resulted at 33; repeat confirms 33; lab notified for stat lab; pt asymptomatic in regards to hypoglycemia; bed in lowest position; call light within reach; will continue to monitor
[2017-08-13 07:58] LABS: BUN 9 mg/dL (7-17); BUN/CREATININE RATIO 15 (12-20 (CALC)); CHLORIDE 104 mmol/l (95-108); CREATININE 0.6 mg/dL (0.5-1.0); GFR > 60 ML/MIN (>=60 (CALC)); GFR FOR AFR.AMER. > 60 ML/MIN (>=60 (CALC)); SODIUM 142 mmol/l (137-146)
--- NOTE | 2017-08-13 08:05 | NUR ---
awake; up to bsc; pt ate 100% of meal; additional orange juice provided; iv intact; sr on monitor; pt offers no complaints; call light within reach; will continue to monitor
[2017-08-13 08:10] LABS: ANION GAP 18 (6-22 (CALC)); CARBON DIOXIDE 24 mmol/l (22-30); POTASSIUM 3.5 mmol/l (3.5-5.1)
--- NOTE | 2017-08-13 09:00 | NUR ---
Dr Montoya at bedside to assess pt and discuss plan of care; MD updated on hypoglycemia; informed MD repeat accucheck was 81 after breakfast; orders received to hold levemir; discharge on hold at this time; will continue to monitor
--- NOTE | 2017-08-13 10:04 | NUR ---
awake; offers no complaints; iv intact; sr on monitor; kitchen notified of pt request for unsweet tea; call light within reach; will continue to monitor
--- NOTE | 2017-08-13 12:07 | NUR ---
awake in bed; offers no complaints; no distress noted; resp even and unlabored; iv intact; sr on monitor; pt deny needs; pt reports large watery brown bm, not observed per automotive service writer; call light within reach; will continue to monitor
[2017-08-13] MEDS ORDERED: NOVOLIN R100 UNIT/M SC (12:45)
[2017-08-13] MEDS ORDERED: LEVEMIR100 UNIT/M SC (12:45)
--- NOTE | 2017-08-13 14:01 | NUR ---
awake in bed; no distress noted; multiple packets/educational information provided by dietitian on diabetes/ meal planning; vss; iv intact; call light within reach; will continue to monitor;
--- NOTE | 2017-08-13 14:35 | NUR ---
discharge instructions reviewed in detail; #22 removed from rac with catheter tip intact; pt requesting an excuse for restoration officer to verify whereabouts; provided;
--- NOTE | 2017-08-13 14:49 | NUR ---
Discharge instructions given. Patient verbalizes understanding of same. Discharged in stable condition via Wheelchair to Home with volunteer. All belongings sent with pt.
== END 2017-08-13 14:49 | disposition home or self-care (01) | DRG 639 ==
LOC: ED 00:20 → ED-I 01:50 → ED 02:16 → ICU 02:17
PROVIDERS: Family Medicine; Internal Medicine; ADMIT Hospitalist; ATTEND Hospitalist
DX: E10.10 Type 1 diabetes mellitus with ketoacidosis without coma (principal); E10.649 Type 1 diabetes mellitus with hypoglycemia without coma; F15.10 Other stimulant abuse, uncomplicated; F17.210 Nicotine dependence, cigarettes, uncomplicated; Z91.14 Patient's other noncompliance with medication regimen; Z79.4 Long term (current) use of insulin

== ENCOUNTER 2017-09-19 18:25 | Emergency (ER) | payer OTHER ==
[~2017-09-19] VITALS: Ht 160 cm; Wt 68.0 kg
[2017-09-19 19:38] LABS: HEMATOCRIT 42.5 % (37.0-47.0); HEMOGLOBIN 15.1 g/dl (12.0-16.0); IMMATURE GRANULOCYTES 0.2 % (0.0-1.0); MEAN CORPUSCULAR HGB 32.8 pG CALC (26.0-32.0); MEAN CORPUSCULAR HGB CONC 35.5 g/L CALC (32.0-36.0); NEUT# 5.06 thou/uL (2.00-7.15); RED BLOOD COUNT 4.61 mill/uL (4.20-5.60); RED CELL DISTRI WIDTH 11.7 % (11.5-15.5)
[2017-09-19 19:41] LABS: MEAN CELL VOLUME 92.2 fL CALC (80.0-100.0)
[2017-09-19 19:42] LABS: URINE BILIRUBIN - DIPSTICK NEGATIVE (NEGATIVE); URINE BLOOD DIPSTICK NEGATIVE (NEGATIVE); URINE COLOR YELLOW; URINE GLUCOSE - DIPSTICK >=1000 mg/dL (NEGATIVE); URINE KETONE NEGATIVE (NEGATIVE); URINE LEUK ESTERASE NEGATIVE (NEGATIVE); URINE NITRITE - DIPSTICK NEGATIVE (Negative); URINE PROTEIN - DIPSTICK NEGATIVE (NEG-TRACE); URINE UROBILINOGEN - DIPSTICK 0.2 E.U./dL (0.2)
[2017-09-19 19:43] LABS: URINE CLARITY CLEAR
[2017-09-19 19:50] LABS: ANION GAP 20 (6-22 (CALC)); BILIRUBIN, TOTAL 0.3 mg/dL (0.0-1.4); BUN 13 mg/dL (7-17); BUN/CREATININE RATIO 26 (12-20 (CALC)); CARBON DIOXIDE 25 mmol/l (22-30); CHLORIDE 95 mmol/l (95-108); CREATININE 0.5 mg/dL (0.5-1.0); GFR > 60 ML/MIN (>=60 (CALC)); GFR FOR AFR.AMER. > 60 ML/MIN (>=60 (CALC)); POTASSIUM 4.2 mmol/l (3.5-5.1); SGOT/AST 20 u/l (14-36); SGPT/ALT 30 u/l (9-52); SODIUM 136 mmol/l (137-146)
[2017-09-19 19:51] LABS: ALBUMIN 4.5 g/dL (3.2-5.0); ALKALINE PHOSPHATASE 160 u/l (38-126); TOTAL PROTEIN 7.3 g/dL (6.3-8.2)
[2017-09-19 20:54] VITALS: BP 141/75
== END 2017-09-19 21:01 | DRG 639 ==
LOC: ED 18:25
PROVIDERS: Emergency Medicine
DX: E11.65 Type 2 diabetes mellitus with hyperglycemia (principal); I10 Essential (primary) hypertension; F17.210 Nicotine dependence, cigarettes, uncomplicated; Z79.4 Long term (current) use of insulin

== ENCOUNTER 2021-12-23 07:49 | Emergency (ER) | payer SELFPAY ==
[~2021-12-23] VITALS: Ht 160 cm; Wt 68.0 kg
[2021-12-23 08:02] VITALS: BP 164/89
[2021-12-23 08:20] VITALS: BP 164/89
== END 2021-12-23 08:40 | disposition left against medical advice (07) | DRG 639 ==
LOC: ED 07:49
DX: E10.649 Type 1 diabetes mellitus with hypoglycemia without coma (principal); I10 Essential (primary) hypertension; F17.200 Nicotine dependence, unspecified, uncomplicated; Z91.19 Patient's noncompliance with other medical treatment and regimen; Z79.4 Long term (current) use of insulin; Z91.51 Personal history of suicidal behavior

== ENCOUNTER 2022-06-03 14:26 | Emergency (ER) | payer SELFPAY ==
[~2022-06-03] VITALS: Ht 160 cm; Wt 72.7 kg
[2022-06-03 14:49] LABS: BASO% 0.4 % (0-3); EOS% 0.1 % (0-8); HEMATOCRIT 42.1 % (37.0-47.0); HEMOGLOBIN 13.8 g/dl (12.0-16.0); IMMATURE GRANULOCYTES 0.3 % (0.0-5.0); LYMPH% 8.1 % (15-41); MEAN CELL VOLUME 98.1 fL CALC (80.0-100.0); MEAN CORPUSCULAR HGB 32.2 pG CALC (26.0-32.0); MEAN CORPUSCULAR HGB CONC 32.8 g/dL CAL (32.0-36.0); MONO% 3.2 % (2-13); NEUT# 8.83 thou/uL (2.00-7.15); NEUT% 87.9 % (42-76); RED BLOOD COUNT 4.29 mill/uL (4.20-5.60); RED CELL DISTRI WIDTH 12.1 % (11.5-15.5)
[2022-06-03 14:58] VITALS: BP 141/83
[2022-06-03 15:00] VITALS: BP 135/83
[2022-06-03 15:02] LABS: ALBUMIN 4.4 g/dL (3.2-5.0); ALKALINE PHOSPHATASE 92 u/l (38-126); ANION GAP 9 (6-22 (CALC)); BILIRUBIN, TOTAL 0.2 mg/dL (0.0-1.4); BUN 8 mg/dL (7-17); BUN/CREATININE RATIO 15 (12-20 (CALC)); CARBON DIOXIDE 29 mmol/l (22-30); CHLORIDE 102 mmol/l (95-108); CREATININE 0.5 mg/dL (0.5-1.0); ETHYL ALCOHOL 0 mg/dl (0-30); GFR FOR AFR.AMER. > 60 ML/MIN (>=60 (CALC)); GFR OTHER RACES > 60 ML/MIN (>=60 (CALC)); POTASSIUM 4.4 mmol/l (3.5-5.1); SGOT/AST 24 u/l (14-36); SODIUM 137 mmol/l (137-146); TOTAL PROTEIN 7.2 g/dL (6.3-8.2)
[2022-06-03 15:15] VITALS: BP 135/83
== END 2022-06-03 15:18 | disposition left against medical advice (07) | DRG 639 ==
LOC: ED 14:26
PROVIDERS: Family Medicine
DX: E11.649 Type 2 diabetes mellitus with hypoglycemia without coma (principal); T38.3X5A Adverse effect of insulin and oral hypoglycemic [antidiabetic] drugs, initial encounter; Z79.4 Long term (current) use of insulin; R68.0 Hypothermia, not associated with low environmental temperature; Z53.29 Procedure and treatment not carried out because of patient's decision for other reasons

== ENCOUNTER 2022-06-05 13:02 | Emergency (ER) | payer SELFPAY ==
[2022-06-05] VITALS (7 sets, daily range): BP systolic 144–168; BP diastolic 96–108
[~2022-06-05] VITALS: Ht 160 cm; Wt 54.4 kg
[2022-06-05 13:27] LABS: BASO% 0.2 % (0-3); EOS% 0.8 % (0-8); HEMOGLOBIN 12.7 g/dl (12.0-16.0); IMMATURE GRANULOCYTES 0.2 % (0.0-5.0); MEAN CELL VOLUME 99.7 fL CALC (80.0-100.0); MEAN CORPUSCULAR HGB 32.5 pG CALC (26.0-32.0); MEAN CORPUSCULAR HGB CONC 32.6 g/dL CAL (32.0-36.0); MONO% 6.4 % (2-13); NEUT# 6.3 thou/uL (2.00-7.15); NEUT% 71.4 % (42-76); RED BLOOD COUNT 3.91 mill/uL (4.20-5.60); RED CELL DISTRI WIDTH 12.2 % (11.5-15.5)
[2022-06-05 13:37] LABS: HCG SERUM/URINE (NEG/POS) NEGATIVE (NEGATIVE)
[2022-06-05 13:42] LABS: ALBUMIN 4.1 g/dL (3.2-5.0); ALKALINE PHOSPHATASE 89 u/l (38-126); BUN 10 mg/dL (7-17); BUN/CREATININE RATIO 18 (12-20 (CALC)); CARBON DIOXIDE 27 mmol/l (22-30); CHLORIDE 103 mmol/l (95-108); CREATININE 0.6 mg/dL (0.5-1.0); ETHYL ALCOHOL 0 mg/dl (0-30); GFR FOR AFR.AMER. > 60 ML/MIN (>=60 (CALC)); GFR OTHER RACES > 60 ML/MIN (>=60 (CALC)); SGOT/AST 26 u/l (14-36); SODIUM 135 mmol/l (137-146); TOTAL PROTEIN 6.8 g/dL (6.3-8.2)
[2022-06-05 13:45] LABS: ANION GAP 9 (6-22 (CALC)); BILIRUBIN, TOTAL 0.1 mg/dL (0.0-1.4); POTASSIUM 3.5 mmol/l (3.5-5.1)
== END 2022-06-05 15:13 | disposition left against medical advice (07) | DRG 639 ==
LOC: ED 13:02
PROVIDERS: Family Medicine
DX: E11.649 Type 2 diabetes mellitus with hypoglycemia without coma (principal); I10 Essential (primary) hypertension; F17.210 Nicotine dependence, cigarettes, uncomplicated; Z20.822 Contact with and (suspected) exposure to COVID-19

== ENCOUNTER 2022-10-18 06:51 | Emergency (ER) | payer SELFPAY ==
[~2022-10-18] VITALS: Ht 160 cm; Wt 68.0 kg
[2022-10-18 07:06] VITALS: BP 164/86
[2022-10-18 07:46] LABS: BASO% 0.5 % (0-3); EOS% 0.9 % (0-8); IMMATURE GRANULOCYTES 0.4 % (0.0-5.0); MEAN CELL VOLUME 99.6 fL CALC (80.0-100.0); MEAN CORPUSCULAR HGB 32.3 pG CALC (26.0-32.0); MEAN CORPUSCULAR HGB CONC 32.4 g/dL CAL (32.0-36.0); MONO% 5.9 % (2-13); NEUT# 6.78 thou/uL (2.00-7.15); NEUT% 68.3 % (42-76); RED BLOOD COUNT 5.14 mill/uL (4.20-5.60); RED CELL DISTRI WIDTH 12.5 % (11.5-15.5)
[2022-10-18 07:47] LABS: HEMATOCRIT 51.2 % (37.0-47.0); HEMOGLOBIN 16.6 g/dl (12.0-16.0)
[2022-10-18 08:01] VITALS: BP 120/73
[2022-10-18 08:12] LABS: ALKALINE PHOSPHATASE 114 u/l (38-126); BUN 6 mg/dL (7-17); BUN/CREATININE RATIO 13 (12-20 (CALC)); CHLORIDE 100 mmol/l (95-108); CREATININE 0.5 mg/dL (0.5-1.0); GFR FOR AFR.AMER. > 60 ML/MIN (>=60 (CALC)); GFR OTHER RACES > 60 ML/MIN (>=60 (CALC)); POTASSIUM 3.2 mmol/l (3.5-5.1); SGOT/AST 38 u/l (14-36); SODIUM 141 mmol/l (137-146)
[2022-10-18 08:18] LABS: ALBUMIN 5.9 g/dL (3.2-5.0); ANION GAP 24 (6-22 (CALC)); BILIRUBIN, TOTAL 0.3 mg/dL (0.02-1.3); CARBON DIOXIDE 20 mmol/l (22-30); TOTAL PROTEIN 10.2 g/dL (6.3-8.2)
[2022-10-18 09:10] VITALS: BP 120/73
== END 2022-10-18 09:19 | disposition left against medical advice (07) | DRG 639 ==
LOC: ED 06:51
PROVIDERS: Family Medicine
DX: E10.649 Type 1 diabetes mellitus with hypoglycemia without coma (principal); I10 Essential (primary) hypertension; Z53.29 Procedure and treatment not carried out because of patient's decision for other reasons; Z79.4 Long term (current) use of insulin

== ENCOUNTER 2023-04-26 23:45 | Inpatient (IN) | payer SELFPAY ==
[~2023-04-26] VITALS: Ht 160 cm; Wt 47.5 kg
[2023-04-26 23:53] VITALS: BP 189/98
[2023-04-27] VITALS (87 sets, daily range): BP systolic 114–177; BP diastolic 49–97
[2023-04-27 00:35] LABS: BASO% 0.1 % (0-3); HEMATOCRIT 46.9 % (37.0-47.0); HEMOGLOBIN 15.8 g/dl (12.0-16.0); IMMATURE GRANULOCYTES 3.2 % (0.0-5.0); LYMPH% 5.1 % (15-41); MEAN CELL VOLUME 93.8 fL CALC (80.0-100.0); MEAN CORPUSCULAR HGB 31.6 pG CALC (26.0-32.0); MEAN CORPUSCULAR HGB CONC 33.7 g/dL CAL (32.0-36.0); MONO% 3.4 % (2-13); NEUT# 24.94 thou/uL (2.00-7.15); NEUT% 88.2 % (42-76); RED CELL DISTRI WIDTH 12.4 % (11.5-15.5)
[2023-04-27 00:45] LABS: C-REACTIVE PROTEIN 4.9 mg/dL (0-0.9)
[2023-04-27 03:32] LABS: BILIRUBIN, TOTAL 0.4 mg/dL (0.02-1.3); BUN 18 mg/dL (7-17); BUN/CREATININE RATIO 21 (12-20 (CALC)); CHLORIDE 100 mmol/l (95-108); CREATININE 0.8 mg/dL (0.5-1.0); GFR FOR AFR.AMER. > 60 ML/MIN (>=60 (CALC)); GFR OTHER RACES > 60 ML/MIN (>=60 (CALC)); SGOT/AST 26 u/l (14-36)
[2023-04-27 03:42] LABS: ALBUMIN 4.4 g/dL (3.2-5.0); ALKALINE PHOSPHATASE 227 u/l (38-126); ANION GAP 31 (6-22 (CALC)); POTASSIUM 4.2 mmol/l (3.5-5.1); SODIUM 132 mmol/l (137-146); TOTAL PROTEIN 7.8 g/dL (6.3-8.2)
[2023-04-27 03:43] LABS: CARBON DIOXIDE < 5 mmol/l (22-30)
[2023-04-27 09:29] LABS: HEMATOCRIT 45.5 % (37.0-47.0); IMMATURE GRANULOCYTES 3.6 % (0.0-5.0); MEAN CELL VOLUME 96.6 fL CALC (80.0-100.0); MEAN CORPUSCULAR HGB 31.8 pG CALC (26.0-32.0); PLATELET COUNT 546 thou/uL (130-400); RED BLOOD COUNT 4.71 mill/uL (4.20-5.60); RED CELL DISTRI WIDTH 12.4 % (11.5-15.5)
[2023-04-27 09:46] LABS: MANUAL DIFFERENTIAL YES
[2023-04-27 10:03] LABS: BUN 17 mg/dL (7-17); BUN/CREATININE RATIO 26 (12-20 (CALC)); CREATININE 0.6 mg/dL (0.5-1.0); GFR FOR AFR.AMER. > 60 ML/MIN (>=60 (CALC)); GFR OTHER RACES > 60 ML/MIN (>=60 (CALC)); POTASSIUM 4.9 mmol/l (3.5-5.1)
[2023-04-27 10:04] LABS: ANION GAP 27 (6-22 (CALC)); CHLORIDE 113 mmol/l (95-108); SODIUM 140 mmol/l (137-146)
[2023-04-27 10:05] LABS: CARBON DIOXIDE < 5 mmol/l (22-30)
[2023-04-27 10:45] LABS: BAND 6 % (0-8); PLATELET ESTIMATE SLIGHT INCREASE
[2023-04-27 14:55] LABS: ANION GAP 22 (6-22 (CALC)); BUN 16 mg/dL (7-17); BUN/CREATININE RATIO 34 (12-20 (CALC)); CHLORIDE 118 mmol/l (95-108); CREATININE 0.5 mg/dL (0.5-1.0); GFR FOR AFR.AMER. > 60 ML/MIN (>=60 (CALC)); GFR OTHER RACES > 60 ML/MIN (>=60 (CALC)); POTASSIUM 3.1 mmol/l (3.5-5.1); SODIUM 142 mmol/l (137-146)
[2023-04-27 14:56] LABS: CARBON DIOXIDE 5 mmol/l (22-30)
[2023-04-27 15:19] LABS: URINE BILIRUBIN - DIPSTICK Negative (NEGATIVE); URINE BLOOD DIPSTICK Trace-intact (NEGATIVE); URINE COLOR Yellow; URINE EPITHELIAL CELLS FEW EPI/hpf (0-FEW); URINE GLUCOSE - DIPSTICK 500 mg/dL (NEGATIVE); URINE KETONE >=160 mg/dL (NEGATIVE); URINE LEUK ESTERASE Negative (NEGATIVE); URINE MUCUS FEW hpf (NONE-FEW); URINE NITRITE - DIPSTICK Negative (Negative); URINE PROTEIN - DIPSTICK 30 mg/dL (NEG-TRACE); URINE RBC 0-2 RBC/hpf (0-5); URINE SPECIFIC GRAVITY 1.025; URINE UROBILINOGEN - DIPSTICK 0.2 E.U./dL (0.2)
[2023-04-27 18:56] LABS: ANION GAP 19 (6-22 (CALC)); BUN 15 mg/dL (7-17); BUN/CREATININE RATIO 34 (12-20 (CALC)); CHLORIDE 116 mmol/l (95-108); CREATININE 0.4 mg/dL (0.5-1.0); GFR FOR AFR.AMER. > 60 ML/MIN (>=60 (CALC)); GFR OTHER RACES > 60 ML/MIN (>=60 (CALC)); POTASSIUM 2.6 mmol/l (3.5-5.1); SODIUM 142 mmol/l (137-146)
[2023-04-27 18:57] LABS: CARBON DIOXIDE 10 mmol/l (22-30)
[2023-04-27 20:56] LABS: BUN 15 mg/dL (7-17); BUN/CREATININE RATIO 38 (12-20 (CALC)); CHLORIDE 116 mmol/l (95-108); CREATININE 0.4 mg/dL (0.5-1.0); GFR FOR AFR.AMER. > 60 ML/MIN (>=60 (CALC)); GFR OTHER RACES > 60 ML/MIN (>=60 (CALC)); SODIUM 141 mmol/l (137-146)
[2023-04-27 20:57] LABS: ANION GAP 11 (6-22 (CALC)); CARBON DIOXIDE 16 mmol/l (22-30); POTASSIUM 2.1 mmol/l (3.5-5.1)
[2023-04-28] VITALS (94 sets, daily range): BP systolic 106–149; BP diastolic 41–81
[2023-04-28 00:47] LABS: ANION GAP 10 (6-22 (CALC)); BUN 14 mg/dL (7-17); BUN/CREATININE RATIO 32 (12-20 (CALC)); CARBON DIOXIDE 17 mmol/l (22-30); CHLORIDE 117 mmol/l (95-108); CREATININE 0.4 mg/dL (0.5-1.0); GFR FOR AFR.AMER. > 60 ML/MIN (>=60 (CALC)); GFR OTHER RACES > 60 ML/MIN (>=60 (CALC)); POTASSIUM 2.5 mmol/l (3.5-5.1); SODIUM 141 mmol/l (137-146)
[2023-04-28 05:43] LABS: ALKALINE PHOSPHATASE 129 u/l (38-126); BUN 15 mg/dL (7-17); BUN/CREATININE RATIO 30 (12-20 (CALC)); CALCULATED LDLCHOLESTEROL 28 mg/dL (62-129 (CALC)); CHLORIDE 115 mmol/l (95-108); CREATININE 0.5 mg/dL (0.5-1.0); GFR FOR AFR.AMER. > 60 ML/MIN (>=60 (CALC)); GFR OTHER RACES > 60 ML/MIN (>=60 (CALC)); HDL CHOLESTEROL 50 mg/dL (39.0-59.0); MAGNESIUM 1.8 mg/dL (1.6-2.3); POTASSIUM 2.8 mmol/l (3.5-5.1); SGOT/AST 15 u/l (14-36); SODIUM 141 mmol/l (137-146); TOTAL TRIGLYCERIDES 103 mg/dl (0-149); VLDL CHOLESTROL 21 mg/dl (1-41 (CALC))
[2023-04-28 05:50] LABS: ALBUMIN 2.4 g/dL (3.2-5.0); ANION GAP 16 (6-22 (CALC)); BILIRUBIN, TOTAL 0.2 mg/dL (0.02-1.3); CARBON DIOXIDE 13 mmol/l (22-30); TOTAL CHOLESTEROL 99 mg/dl (0-199); TOTAL PROTEIN 4.5 g/dL (6.3-8.2)
[2023-04-28 09:37] LABS: BUN 14 mg/dL (7-17); BUN/CREATININE RATIO 26 (12-20 (CALC)); CHLORIDE 113 mmol/l (95-108); CREATININE 0.5 mg/dL (0.5-1.0); GFR FOR AFR.AMER. > 60 ML/MIN (>=60 (CALC)); GFR OTHER RACES > 60 ML/MIN (>=60 (CALC)); POTASSIUM 2.9 mmol/l (3.5-5.1); SODIUM 139 mmol/l (137-146)
[2023-04-28 09:39] LABS: ANION GAP 22 (6-22 (CALC)); CARBON DIOXIDE 7 mmol/l (22-30)
[2023-04-28 10:13] LABS: BASO% 0.1 % (0-3); EOS% 0.1 % (0-8); HEMATOCRIT 36.6 % (37.0-47.0); IMMATURE GRANULOCYTES 1.1 % (0.0-5.0); LYMPH% 5.5 % (15-41); MEAN CELL VOLUME 89.7 fL CALC (80.0-100.0); MEAN CORPUSCULAR HGB 31.9 pG CALC (26.0-32.0); MEAN CORPUSCULAR HGB CONC 35.5 g/dL CAL (32.0-36.0); NEUT# 14.89 thou/uL (2.00-7.15); NEUT% 90.2 % (42-76); RED BLOOD COUNT 4.08 mill/uL (4.20-5.60); RED CELL DISTRI WIDTH 12.5 % (11.5-15.5)
[2023-04-28 10:24] LABS: ALKALINE PHOSPHATASE 166 u/l (38-126); BILIRUBIN, TOTAL 0.2 mg/dL (0.02-1.3); BUN 14 mg/dL (7-17); BUN/CREATININE RATIO 25 (12-20 (CALC)); CHLORIDE 113 mmol/l (95-108); CREATININE 0.6 mg/dL (0.5-1.0); GFR FOR AFR.AMER. > 60 ML/MIN (>=60 (CALC)); GFR OTHER RACES > 60 ML/MIN (>=60 (CALC)); SGOT/AST 19 u/l (14-36); SODIUM 141 mmol/l (137-146)
[2023-04-28 10:31] LABS: ALBUMIN 3.2 g/dL (3.2-5.0); ANION GAP 23 (6-22 (CALC)); TOTAL PROTEIN 5.6 g/dL (6.3-8.2)
[2023-04-28 10:32] LABS: CARBON DIOXIDE 8 mmol/l (22-30)
[2023-04-28 12:59] LABS: ANION GAP 25 (6-22 (CALC)); BUN 14 mg/dL (7-17); BUN/CREATININE RATIO 26 (12-20 (CALC)); CHLORIDE 113 mmol/l (95-108); CREATININE 0.5 mg/dL (0.5-1.0); GFR FOR AFR.AMER. > 60 ML/MIN (>=60 (CALC)); GFR OTHER RACES > 60 ML/MIN (>=60 (CALC)); POTASSIUM 2.8 mmol/l (3.5-5.1); SODIUM 141 mmol/l (137-146)
[2023-04-28 13:03] LABS: CARBON DIOXIDE 6 mmol/l (22-30)
[2023-04-28 17:03] LABS: BUN 12 mg/dL (7-17); BUN/CREATININE RATIO 26 (12-20 (CALC)); CHLORIDE 115 mmol/l (95-108); CREATININE 0.5 mg/dL (0.5-1.0); GFR FOR AFR.AMER. > 60 ML/MIN (>=60 (CALC)); GFR OTHER RACES > 60 ML/MIN (>=60 (CALC)); SODIUM 139 mmol/l (137-146)
[2023-04-28 17:09] LABS: ANION GAP 18 (6-22 (CALC)); CARBON DIOXIDE 10 mmol/l (22-30); POTASSIUM 3.7 mmol/l (3.5-5.1)
[2023-04-28 20:00] LABS: ANION GAP 11 (6-22 (CALC)); BUN 11 mg/dL (7-17); BUN/CREATININE RATIO 26 (12-20 (CALC)); CARBON DIOXIDE 17 mmol/l (22-30); CHLORIDE 115 mmol/l (95-108); CREATININE 0.4 mg/dL (0.5-1.0); GFR FOR AFR.AMER. > 60 ML/MIN (>=60 (CALC)); GFR OTHER RACES > 60 ML/MIN (>=60 (CALC)); POTASSIUM 3.7 mmol/l (3.5-5.1); SODIUM 139 mmol/l (137-146)
[2023-04-29] VITALS (93 sets, daily range): BP systolic 117–170; BP diastolic 59–106
[2023-04-29 00:37] LABS: ANION GAP 9 (6-22 (CALC)); BUN 10 mg/dL (7-17); BUN/CREATININE RATIO 27 (12-20 (CALC)); CARBON DIOXIDE 20 mmol/l (22-30); CHLORIDE 116 mmol/l (95-108); CREATININE 0.4 mg/dL (0.5-1.0); GFR FOR AFR.AMER. > 60 ML/MIN (>=60 (CALC)); GFR OTHER RACES > 60 ML/MIN (>=60 (CALC)); POTASSIUM 3.5 mmol/l (3.5-5.1); SODIUM 141 mmol/l (137-146)
[2023-04-29 04:52] LABS: BASO% 0.4 % (0-3); EOS% 0.3 % (0-8); IMMATURE GRANULOCYTES 1.1 % (0.0-5.0); MEAN CELL VOLUME 88.3 fL CALC (80.0-100.0); MEAN CORPUSCULAR HGB 31.4 pG CALC (26.0-32.0); MEAN CORPUSCULAR HGB CONC 35.5 g/dL CAL (32.0-36.0); MONO% 7.2 % (2-13); NEUT# 7.73 thou/uL (2.00-7.15); RED BLOOD COUNT 3.41 mill/uL (4.20-5.60); RED CELL DISTRI WIDTH 12.6 % (11.5-15.5)
[2023-04-29 04:54] LABS: HEMATOCRIT 30.1 % (37.0-47.0); HEMOGLOBIN 10.7 g/dl (12.0-16.0)
[2023-04-29 05:12] LABS: ALBUMIN 2.5 g/dL (3.2-5.0); ALKALINE PHOSPHATASE 117 u/l (38-126); ANION GAP 9 (6-22 (CALC)); BILIRUBIN, TOTAL 0.2 mg/dL (0.02-1.3); BUN 10 mg/dL (7-17); BUN/CREATININE RATIO 27 (12-20 (CALC)); CARBON DIOXIDE 20 mmol/l (22-30); CHLORIDE 114 mmol/l (95-108); CREATININE 0.4 mg/dL (0.5-1.0); GFR FOR AFR.AMER. > 60 ML/MIN (>=60 (CALC)); GFR OTHER RACES > 60 ML/MIN (>=60 (CALC)); MAGNESIUM 1.9 mg/dL (1.6-2.3); POTASSIUM 3.4 mmol/l (3.5-5.1); SGOT/AST 28 u/l (14-36); SODIUM 140 mmol/l (137-146); TOTAL PROTEIN 4.7 g/dL (6.3-8.2)
[2023-04-29 11:28] LABS: ANION GAP 10 (6-22 (CALC)); BUN 8 mg/dL (7-17); BUN/CREATININE RATIO 24 (12-20 (CALC)); CARBON DIOXIDE 18 mmol/l (22-30); CHLORIDE 110 mmol/l (95-108); CREATININE 0.3 mg/dL (0.5-1.0); GFR FOR AFR.AMER. > 60 ML/MIN (>=60 (CALC)); GFR OTHER RACES > 60 ML/MIN (>=60 (CALC)); POTASSIUM 3.5 mmol/l (3.5-5.1); SODIUM 135 mmol/l (137-146)
[2023-04-29 15:30] LABS: ANION GAP 9 (6-22 (CALC)); BUN 6 mg/dL (7-17); BUN/CREATININE RATIO 20 (12-20 (CALC)); CARBON DIOXIDE 21 mmol/l (22-30); CHLORIDE 111 mmol/l (95-108); CREATININE 0.3 mg/dL (0.5-1.0); GFR FOR AFR.AMER. > 60 ML/MIN (>=60 (CALC)); GFR OTHER RACES > 60 ML/MIN (>=60 (CALC)); POTASSIUM 3.7 mmol/l (3.5-5.1); SODIUM 137 mmol/l (137-146)
[2023-04-29 19:57] LABS: ANION GAP 12 (6-22 (CALC)); BUN 5 mg/dL (7-17); BUN/CREATININE RATIO 16 (12-20 (CALC)); CARBON DIOXIDE 19 mmol/l (22-30); CHLORIDE 109 mmol/l (95-108); CREATININE 0.3 mg/dL (0.5-1.0); GFR FOR AFR.AMER. > 60 ML/MIN (>=60 (CALC)); GFR OTHER RACES > 60 ML/MIN (>=60 (CALC)); POTASSIUM 4.2 mmol/l (3.5-5.1); SODIUM 135 mmol/l (137-146)
[2023-04-30] VITALS (91 sets, daily range): BP systolic 109–178; BP diastolic 70–115
[2023-04-30 03:04] LABS: ANION GAP 9 (6-22 (CALC)); BUN 3 mg/dL (7-17); BUN/CREATININE RATIO 11 (12-20 (CALC)); CARBON DIOXIDE 24 mmol/l (22-30); CHLORIDE 108 mmol/l (95-108); CREATININE 0.3 mg/dL (0.5-1.0); GFR FOR AFR.AMER. > 60 ML/MIN (>=60 (CALC)); GFR OTHER RACES > 60 ML/MIN (>=60 (CALC)); POTASSIUM 3.7 mmol/l (3.5-5.1); SODIUM 137 mmol/l (137-146)
[2023-04-30 07:40] LABS: BASO% 0.4 % (0-3); EOS% 0.8 % (0-8); HEMOGLOBIN 11.4 g/dl (12.0-16.0); IMMATURE GRANULOCYTES 0.8 % (0.0-5.0); LYMPH% 32.1 % (15-41); MEAN CELL VOLUME 89.1 fL CALC (80.0-100.0); MEAN CORPUSCULAR HGB 31.8 pG CALC (26.0-32.0); MEAN CORPUSCULAR HGB CONC 35.6 g/dL CAL (32.0-36.0); MONO% 7.8 % (2-13); NEUT# 5.35 thou/uL (2.00-7.15); NEUT% 58.1 % (42-76); RED BLOOD COUNT 3.59 mill/uL (4.20-5.60); RED CELL DISTRI WIDTH 12.9 % (11.5-15.5)
[2023-04-30 07:55] LABS: ALBUMIN 2.5 g/dL (3.2-5.0); ALKALINE PHOSPHATASE 137 u/l (38-126); ANION GAP 6 (6-22 (CALC)); BUN 5 mg/dL (7-17); BUN/CREATININE RATIO 15 (12-20 (CALC)); CARBON DIOXIDE 27 mmol/l (22-30); CHLORIDE 108 mmol/l (95-108); CREATININE 0.3 mg/dL (0.5-1.0); GFR FOR AFR.AMER. > 60 ML/MIN (>=60 (CALC)); GFR OTHER RACES > 60 ML/MIN (>=60 (CALC)); MAGNESIUM 1.6 mg/dL (1.6-2.3); POTASSIUM 3.6 mmol/l (3.5-5.1); SGOT/AST 46 u/l (14-36); SODIUM 137 mmol/l (137-146); TOTAL PROTEIN 4.9 g/dL (6.3-8.2)
[2023-04-30 07:56] LABS: BILIRUBIN, TOTAL 0.3 mg/dL (0.02-1.3)
[2023-05-01] VITALS (55 sets, daily range): BP systolic 116–182; BP diastolic 60–113
[2023-05-01 07:09] LABS: BASO% 0.4 % (0-3); EOS% 1.3 % (0-8); HEMATOCRIT 36.5 % (37.0-47.0); HEMOGLOBIN 12.8 g/dl (12.0-16.0); IMMATURE GRANULOCYTES 1.7 % (0.0-5.0); LYMPH% 27.7 % (15-41); MEAN CELL VOLUME 90.1 fL CALC (80.0-100.0); MEAN CORPUSCULAR HGB 31.6 pG CALC (26.0-32.0); MEAN CORPUSCULAR HGB CONC 35.1 g/dL CAL (32.0-36.0); MONO% 8.9 % (2-13); NEUT# 6.01 thou/uL (2.00-7.15); RED BLOOD COUNT 4.05 mill/uL (4.20-5.60); RED CELL DISTRI WIDTH 12.7 % (11.5-15.5)
[2023-05-01 07:13] LABS: ALKALINE PHOSPHATASE 174 u/l (38-126); ANION GAP 11 (6-22 (CALC)); BILIRUBIN, TOTAL 0.4 mg/dL (0.02-1.3); BUN 6 mg/dL (7-17); BUN/CREATININE RATIO 14 (12-20 (CALC)); CARBON DIOXIDE 27 mmol/l (22-30); CHLORIDE 103 mmol/l (95-108); CREATININE 0.4 mg/dL (0.5-1.0); GFR FOR AFR.AMER. > 60 ML/MIN (>=60 (CALC)); GFR OTHER RACES > 60 ML/MIN (>=60 (CALC)); MAGNESIUM 1.9 mg/dL (1.6-2.3); SGOT/AST 45 u/l (14-36); SODIUM 137 mmol/l (137-146); TOTAL PROTEIN 5.7 g/dL (6.3-8.2)
[2023-05-02] VITALS (15 sets, daily range): BP systolic 136–169; BP diastolic 63–96
[2023-05-02 07:44] LABS: HEMATOCRIT 37.5 % (37.0-47.0); HEMOGLOBIN 12.7 g/dl (12.0-16.0); MEAN CELL VOLUME 92.8 fL CALC (80.0-100.0); MEAN CORPUSCULAR HGB 31.4 pG CALC (26.0-32.0); MEAN CORPUSCULAR HGB CONC 33.9 g/dL CAL (32.0-36.0); RED BLOOD COUNT 4.04 mill/uL (4.20-5.60); RED CELL DISTRI WIDTH 12.4 % (11.5-15.5)
[2023-05-02 07:47] LABS: ALBUMIN 2.8 g/dL (3.2-5.0); ALKALINE PHOSPHATASE 223 u/l (38-126); BILIRUBIN, TOTAL 0.4 mg/dL (0.02-1.3); BUN 8 mg/dL (7-17); BUN/CREATININE RATIO 25 (12-20 (CALC)); CARBON DIOXIDE 25 mmol/l (22-30); CHLORIDE 96 mmol/l (95-108); CREATININE 0.3 mg/dL (0.5-1.0); GFR FOR AFR.AMER. > 60 ML/MIN (>=60 (CALC)); GFR OTHER RACES > 60 ML/MIN (>=60 (CALC)); MAGNESIUM 1.7 mg/dL (1.6-2.3); SGOT/AST 35 u/l (14-36); TOTAL PROTEIN 5.1 g/dL (6.3-8.2)
[2023-05-02 08:17] LABS: POTASSIUM 4.5 mmol/l (3.5-5.1)
[2023-05-02 08:19] LABS: ANION GAP 13 (6-22 (CALC)); SODIUM 129 mmol/l (137-146)
[2023-05-03] VITALS (10 sets, daily range): BP systolic 122–156; BP diastolic 72–88
[2023-05-03 04:59] LABS: BASO% 0.3 % (0-3); HEMATOCRIT 35.4 % (37.0-47.0); HEMOGLOBIN 12.1 g/dl (12.0-16.0); IMMATURE GRANULOCYTES 1.9 % (0.0-5.0); LYMPH% 36.5 % (15-41); MEAN CELL VOLUME 94.1 fL CALC (80.0-100.0); MEAN CORPUSCULAR HGB 32.2 pG CALC (26.0-32.0); MEAN CORPUSCULAR HGB CONC 34.2 g/dL CAL (32.0-36.0); MONO% 8.3 % (2-13); NEUT# 4.66 thou/uL (2.00-7.15); RED BLOOD COUNT 3.76 mill/uL (4.20-5.60); RED CELL DISTRI WIDTH 12.4 % (11.5-15.5)
[2023-05-03 05:14] LABS: ALKALINE PHOSPHATASE 189 u/l (38-126); ANION GAP 13 (6-22 (CALC)); BILIRUBIN, TOTAL 0.2 mg/dL (0.02-1.3); BUN 15 mg/dL (7-17); BUN/CREATININE RATIO 35 (12-20 (CALC)); CARBON DIOXIDE 28 mmol/l (22-30); CHLORIDE 96 mmol/l (95-108); CREATININE 0.4 mg/dL (0.5-1.0); GFR FOR AFR.AMER. > 60 ML/MIN (>=60 (CALC)); GFR OTHER RACES > 60 ML/MIN (>=60 (CALC)); MAGNESIUM 1.8 mg/dL (1.6-2.3); POTASSIUM 4.3 mmol/l (3.5-5.1); SGOT/AST 25 u/l (14-36); SODIUM 133 mmol/l (137-146); TOTAL PROTEIN 5.4 g/dL (6.3-8.2)
[2023-05-03] MEDS ORDERED: VIBRAMYCIN100 M2 PO (11:23)
[2023-05-03] MEDS ORDERED: NOVOLIN N100 UNIT/3 SC (11:24)
[2023-05-03] MEDS ORDERED: KETOROLAC10 MG PO (11:25)
== END 2023-05-03 12:30 | disposition home or self-care (01) | DRG 853 ==
LOC: ED 23:45 → ED-I 04-27 04:10 → ED 04-27 06:49 → ICU 04-27 06:49
PROVIDERS: Family Medicine; Student in an Organized Health Care Education/Training Program; ADMIT Student in an Organized Health Care Education/Training Program; ATTEND Student in an Organized Health Care Education/Training Program
PROC: 06HY33Z Insertion of Infusion Device into Lower Vein, Percutaneous Approach (ICD-10-PCS; principal; 2023-04-27)
PROC: 0JB50ZZ Excision of Left Neck Subcutaneous Tissue and Fascia, Open Approach (ICD-10-PCS; 2023-04-27)
PROC: 0J950ZZ Drainage of Left Neck Subcutaneous Tissue and Fascia, Open Approach (ICD-10-PCS; 2023-04-27)
PROC: 0JB50ZZ Excision of Left Neck Subcutaneous Tissue and Fascia, Open Approach (ICD-10-PCS; 2023-05-01)
DX: A41.9 Sepsis, unspecified organism (principal); E10.10 Type 1 diabetes mellitus with ketoacidosis without coma; G93.41 Metabolic encephalopathy; L02.11 Cutaneous abscess of neck; B95.62 Methicillin resistant Staphylococcus aureus infection as the cause of diseases classified elsewhere; R65.20 Severe sepsis without septic shock; E10.649 Type 1 diabetes mellitus with hypoglycemia without coma; I10 Essential (primary) hypertension; E87.6 Hypokalemia; D64.9 Anemia, unspecified; F99 Mental disorder, not otherwise specified; F17.200 Nicotine dependence, unspecified, uncomplicated; Z91.51 Personal history of suicidal behavior; Z79.4 Long term (current) use of insulin; Z20.822 Contact with and (suspected) exposure to COVID-19
CPT/HCPCS: J1650; J3370; Q9967

== ENCOUNTER 2023-06-26 07:09 | Inpatient (IN) | payer SELFPAY ==
[~2023-06-26] VITALS: Ht 160 cm; Wt 50.8 kg
[2023-06-26] VITALS (60 sets, daily range): BP systolic 92–155; BP diastolic 42–81
[~2023-06-26 07:09] MED LIST changes: +KETOROLAC10 MG PO; +NOVOLIN N100 UNIT/3 SC; +VIBRAMYCIN100 M2 PO
[2023-06-26] MEDS ORDERED: SODIUM CHLORIDE 0.9% 1,000 ML IV ONE (07:25)
[2023-06-26 07:48] LABS: HEMATOCRIT 45.6 % (37.0-47.0); HEMOGLOBIN 14.5 g/dl (12.0-16.0); IMMATURE GRANULOCYTES 4.8 % (0.0-5.0); MEAN CELL VOLUME 104.8 fL CALC (80.0-100.0); MEAN CORPUSCULAR HGB 33.3 pG CALC (26.0-32.0); MEAN CORPUSCULAR HGB CONC 31.8 g/dL CAL (32.0-36.0); PLATELET COUNT 541 thou/uL (130-400); RED BLOOD COUNT 4.35 mill/uL (4.20-5.60); RED CELL DISTRI WIDTH 11.7 % (11.5-15.5)
[2023-06-26 07:49] LABS: MANUAL DIFFERENTIAL YES
[2023-06-26] MEDS ORDERED: KETOROLAC TROMETHAMINE 15 MG/ML SDV IV ONE (07:50)
[2023-06-26] MEDS ORDERED: PIPERACILLIN Sodium-Tazobactam 3.375 GM in SODIUM CHLORIDE 0.9% 100 ML IV STA (07:52)
[2023-06-26] MEDS ORDERED: SODIUM CHLORIDE 0.9% 1,000 ML BAG IV ONE (07:55)
[2023-06-26 08:13] LABS: ALBUMIN 4.6 g/dL (3.2-5.0); BILIRUBIN, TOTAL 0.6 mg/dL (0.02-1.3); CREATININE 1.5 mg/dL (0.5-1.0); TOTAL PROTEIN 6.9 g/dL (6.3-8.2)
[2023-06-26 08:47] LABS: POTASSIUM 6.5 mmol/l (3.5-5.1)
[2023-06-26] MEDS ORDERED: INSULIN REGULAR (HUMAN) 100 UNIT/ML INJ IV ONE (08:50)
[2023-06-26 09:23] LABS: BAND 3 % (0-8); POLYCHROMASIA FEW
[2023-06-26 09:24] LABS: ANISOCYTOSIS FEW; PLATELET ESTIMATE SLIGHT INCREASE; POIKILOCYTOSIS FEW; SPHEROCYTE FEW
[2023-06-26] MEDS ORDERED: INSULIN REGULAR (HUMAN) IN SOD 100 ML IV ONE (09:40)
[2023-06-26] MEDS ORDERED: HYDROmorphone HCL 2 MG/AMP IV ONE (09:40)
[2023-06-26] MEDS ORDERED: ONDANSETRON HCl 4 MG/2 ML SDV IV ONE (09:40)
[2023-06-26] MEDS ORDERED: CALCIUM GLUCONATE 1 GM in SODIUM CHLORIDE 0.9% 50 ML IV ONE (10:10)
[2023-06-26] MEDS ORDERED: SODIUM BICARBONATE 8.4% 50 ML/SYR IV ONE ×2 (10:10→11:00)
[2023-06-26 11:07] LABS: BUN 33 mg/dL (7-17); BUN/CREATININE RATIO 20 (12-20 (CALC)); CHLORIDE 100 mmol/l (95-108); CREATININE 1.7 mg/dL (0.5-1.0); GFR FOR AFR.AMER. 40 ML/MIN (>=60 (CALC)); GFR OTHER RACES 33 ML/MIN (>=60 (CALC)); SODIUM 134 mmol/l (137-146)
[2023-06-26 11:15] LABS: ANION GAP 35 (6-22 (CALC)); CARBON DIOXIDE < 5 mmol/l (22-30); POTASSIUM 5.6 mmol/l (3.5-5.1)
[2023-06-26 13:01] LABS: HEMATOCRIT 43.7 % (37.0-47.0); HEMOGLOBIN 14.2 g/dl (12.0-16.0); IMMATURE GRANULOCYTES 4.1 % (0.0-5.0); MEAN CELL VOLUME 100.2 fL CALC (80.0-100.0); MEAN CORPUSCULAR HGB 32.6 pG CALC (26.0-32.0); MEAN CORPUSCULAR HGB CONC 32.5 g/dL CAL (32.0-36.0); PLATELET COUNT 426 thou/uL (130-400); RED BLOOD COUNT 4.36 mill/uL (4.20-5.60); RED CELL DISTRI WIDTH 11.5 % (11.5-15.5)
[2023-06-26 13:04] LABS: MANUAL DIFFERENTIAL YES
[2023-06-26 13:08] LABS: URINE BILIRUBIN - DIPSTICK Negative (NEGATIVE); URINE BLOOD DIPSTICK Small (NEGATIVE); URINE COLOR Yellow; URINE GLUCOSE - DIPSTICK 500 mg/dL (NEGATIVE); URINE KETONE 80 mg/dL (NEGATIVE); URINE LEUK ESTERASE Negative (NEGATIVE); URINE NITRITE - DIPSTICK Negative (Negative); URINE PROTEIN - DIPSTICK 30 mg/dL (NEG-TRACE); URINE UROBILINOGEN - DIPSTICK 0.2 E.U./dL (0.2)
[2023-06-26 13:21] LABS: URINE RBC 0-2 RBC/hpf (0-5); URINE WBC 0-2 WBC/hpf (0-5)
[2023-06-26 13:22] LABS: URINE AMORPH SEDIMENT FEW hpf (NONE-FEW); URINE SQUAMOUS EPITHELIAL CELL FEW EPI/hpf (0-FEW)
[2023-06-26 13:33] LABS: BAND 6 % (0-8)
[2023-06-26 13:34] LABS: ANISOCYTOSIS FEW; PLATELET ESTIMATE SLIGHT INCREASE; POIKILOCYTOSIS FEW; POLYCHROMASIA FEW; SPHEROCYTE FEW
[2023-06-26] MEDS ORDERED: DEXTROSE 5% w/NACL 0.45 1,000 ML IV PRN (13:50)
[2023-06-26] MEDS ORDERED: INSULIN REGULAR (HUMAN) IN SOD 100 ML IV PRN (13:50)
[2023-06-26] MEDS ORDERED: D5 1/2 NaCL W/KCL 40MEQ 1,000 ML IV PRN (13:50)
[2023-06-26] MEDS ORDERED: SODIUM CHLORIDE 0.9% 1,000 ML IV PRN (13:50)
[2023-06-26] MEDS ORDERED: ACETAMINOPHEN 325 MG/TAB PO PRN (13:50)
[2023-06-26] MEDS ORDERED: POTASSIUM CHLORIDE 40 MEQ in SODIUM CHLORIDE 0.45% 1,000 ML IV PRN (13:50)
[2023-06-26] MEDS ORDERED: SODIUM CHLORIDE 0.45% 1,000 ML IV PRN (13:50)
[2023-06-26] MEDS ORDERED: MAGNESIUM HYDROXIDE 30 ML UDC PO PRN (13:50)
[2023-06-26] MEDS ORDERED: SODIUM CHLORIDE 0.9% 1,000 ML IV SCH (13:55)
[2023-06-26] MEDS ORDERED: ONDANSETRON HCl 4 MG/2 ML SDV IV PRN (14:00)
[2023-06-26 15:24] LABS: BUN 33 mg/dL (7-17); BUN/CREATININE RATIO 28 (12-20 (CALC)); CHLORIDE 107 mmol/l (95-108); CREATININE 1.2 mg/dL (0.5-1.0); GFR FOR AFR.AMER. 59 ML/MIN (>=60 (CALC)); GFR OTHER RACES 49 ML/MIN (>=60 (CALC)); POTASSIUM 4.6 mmol/l (3.5-5.1); SODIUM 136 mmol/l (137-146)
[2023-06-26 15:31] LABS: ANION GAP 29 (6-22 (CALC))
[2023-06-26 15:32] LABS: CARBON DIOXIDE < 5 mmol/l (22-30)
[2023-06-26] MEDS ORDERED: SODIUM BICARBONATE 150 ML in DEXTROSE 5% 850 ML IV SCH (16:00)
[2023-06-26] MEDS ORDERED: VANCOMYCIN HCL 1 GM in SODIUM CHLORIDE 0.9% 250 ML IV SCH ×3 (18:00→21:50)
[2023-06-26] MEDS ORDERED: PIPERACILLIN Sodium-Tazobactam 3.375 GM in SODIUM CHLORIDE 0.9% 100 ML IV SCH (18:00)
[2023-06-26 18:40] LABS: ANION GAP 20 (6-22 (CALC)); BUN 33 mg/dL (7-17); BUN/CREATININE RATIO 37 (12-20 (CALC)); CHLORIDE 112 mmol/l (95-108); CREATININE 0.9 mg/dL (0.5-1.0); GFR FOR AFR.AMER. > 60 ML/MIN (>=60 (CALC)); GFR OTHER RACES > 60 ML/MIN (>=60 (CALC)); POTASSIUM 3.8 mmol/l (3.5-5.1); SODIUM 139 mmol/l (137-146)
[2023-06-26 18:43] LABS: CARBON DIOXIDE 11 mmol/l (22-30)
[2023-06-26] MEDS ORDERED: ENOXAPARIN SODIUM 40 MG/0.4 ML SYR SC SCH (21:00)
[2023-06-26 23:02] LABS: BUN 34 mg/dL (7-17); BUN/CREATININE RATIO 46 (12-20 (CALC)); CHLORIDE 111 mmol/l (95-108); CREATININE 0.7 mg/dL (0.5-1.0); GFR FOR AFR.AMER. > 60 ML/MIN (>=60 (CALC)); GFR OTHER RACES > 60 ML/MIN (>=60 (CALC)); POTASSIUM 3.6 mmol/l (3.5-5.1); SODIUM 140 mmol/l (137-146)
[2023-06-26 23:08] LABS: ANION GAP 12 (6-22 (CALC)); CARBON DIOXIDE 21 mmol/l (22-30)
[2023-06-27] VITALS (39 sets, daily range): BP systolic 97–141; BP diastolic 54–90
[2023-06-27 02:30] LABS: ANION GAP 8 (6-22 (CALC)); BUN 33 mg/dL (7-17); BUN/CREATININE RATIO 57 (12-20 (CALC)); CARBON DIOXIDE 24 mmol/l (22-30); CHLORIDE 111 mmol/l (95-108); CREATININE 0.6 mg/dL (0.5-1.0); GFR FOR AFR.AMER. > 60 ML/MIN (>=60 (CALC)); GFR OTHER RACES > 60 ML/MIN (>=60 (CALC)); POTASSIUM 3.1 mmol/l (3.5-5.1); SODIUM 140 mmol/l (137-146)
[2023-06-27 07:08] LABS: BASO% 0.2 % (0-3); IMMATURE GRANULOCYTES 1.2 % (0.0-5.0); LYMPH% 7.7 % (15-41); MEAN CORPUSCULAR HGB 32.8 pG CALC (26.0-32.0); MEAN CORPUSCULAR HGB CONC 35.8 g/dL CAL (32.0-36.0); MONO% 7.5 % (2-13); NEUT% 83.4 % (42-76); RED BLOOD COUNT 3.44 mill/uL (4.20-5.60); RED CELL DISTRI WIDTH 11.5 % (11.5-15.5)
[2023-06-27 07:18] LABS: HEMATOCRIT 31.6 % (37.0-47.0); HEMOGLOBIN 11.3 g/dl (12.0-16.0); MEAN CELL VOLUME 91.9 fL CALC (80.0-100.0)
[2023-06-27] MEDS ORDERED: Polyethylene Glycol 3350 17 GM/PKT PO SCH (09:00)
[2023-06-27 09:11] LABS: ALBUMIN 2.7 g/dL (3.2-5.0); ALKALINE PHOSPHATASE 79 u/l (38-126); ANION GAP 5 (6-22 (CALC)); BILIRUBIN, TOTAL 0.2 mg/dL (0.02-1.3); BUN 33 mg/dL (7-17); BUN/CREATININE RATIO 68 (12-20 (CALC)); CARBON DIOXIDE 29 mmol/l (22-30); CHLORIDE 109 mmol/l (95-108); CREATININE 0.5 mg/dL (0.5-1.0); GFR FOR AFR.AMER. > 60 ML/MIN (>=60 (CALC)); GFR OTHER RACES > 60 ML/MIN (>=60 (CALC)); MAGNESIUM 1.8 mg/dL (1.6-2.3); POTASSIUM 3.2 mmol/l (3.5-5.1); SGOT/AST 38 u/l (14-36); SODIUM 140 mmol/l (137-146); TOTAL PROTEIN 4.7 g/dL (6.3-8.2)
[2023-06-27 10:22] LABS: ANION GAP 7 (6-22 (CALC)); BUN 30 mg/dL (7-17); BUN/CREATININE RATIO 69 (12-20 (CALC)); CARBON DIOXIDE 28 mmol/l (22-30); CHLORIDE 106 mmol/l (95-108); CREATININE 0.4 mg/dL (0.5-1.0); GFR FOR AFR.AMER. > 60 ML/MIN (>=60 (CALC)); GFR OTHER RACES > 60 ML/MIN (>=60 (CALC)); POTASSIUM 3.2 mmol/l (3.5-5.1); SODIUM 138 mmol/l (137-146)
[2023-06-27] MEDS ORDERED: SODIUM CHLORIDE 0.9% 1,000 ML IV PRN (10:45)
[2023-06-27] MEDS ORDERED: DEXTROSE 250 ML IV PRN ×2 (10:45)
[2023-06-27] MEDS ORDERED: INSULIN LISPRO 100 UNITS/ML ML SC SCH (11:00)
[2023-06-27] MEDS ORDERED: INSULIN DETEMIR 100 UNITS/ML SC SCH (11:30)
[2023-06-27] MEDS ORDERED: POTASSIUM CHLORIDE 20 MEQ/PKT POWDER PO SCH (11:30)
[2023-06-27 16:19] LABS: HEMATOCRIT 31.7 % (37.0-47.0); HEMOGLOBIN 11.1 g/dl (12.0-16.0); MEAN CELL VOLUME 93.8 fL CALC (80.0-100.0); MEAN CORPUSCULAR HGB 32.8 pG CALC (26.0-32.0); RED BLOOD COUNT 3.38 mill/uL (4.20-5.60)
[2023-06-27 16:34] LABS: ANION GAP 9 (6-22 (CALC)); CARBON DIOXIDE 25 mmol/l (22-30); CHLORIDE 104 mmol/l (95-108); SODIUM 134 mmol/l (137-146)
[2023-06-27 16:39] LABS: BUN 24 mg/dL (7-17); BUN/CREATININE RATIO 47 (12-20 (CALC)); CREATININE 0.5 mg/dL (0.5-1.0); GFR FOR AFR.AMER. > 60 ML/MIN (>=60 (CALC)); GFR OTHER RACES > 60 ML/MIN (>=60 (CALC))
[2023-06-27 16:41] LABS: POTASSIUM 3.9 mmol/l (3.5-5.1)
[2023-06-28 03:11] VITALS: BP 123/71
[2023-06-28 05:35] LABS: BASO% 0.2 % (0-3); EOS% 0.2 % (0-8); HEMATOCRIT 33.6 % (37.0-47.0); HEMOGLOBIN 11.5 g/dl (12.0-16.0); IMMATURE GRANULOCYTES 0.3 % (0.0-5.0); LYMPH% 22.7 % (15-41); MEAN CELL VOLUME 95.5 fL CALC (80.0-100.0); MEAN CORPUSCULAR HGB 32.7 pG CALC (26.0-32.0); MEAN CORPUSCULAR HGB CONC 34.2 g/dL CAL (32.0-36.0); NEUT# 12.25 thou/uL (2.00-7.15); NEUT% 70.6 % (42-76); RED BLOOD COUNT 3.52 mill/uL (4.20-5.60); RED CELL DISTRI WIDTH 12.4 % (11.5-15.5)
[2023-06-28 05:46] LABS: ALKALINE PHOSPHATASE 109 u/l (38-126); BUN 17 mg/dL (7-17); BUN/CREATININE RATIO 36 (12-20 (CALC)); CARBON DIOXIDE 30 mmol/l (22-30); CHLORIDE 107 mmol/l (95-108); CREATININE 0.5 mg/dL (0.5-1.0); GFR FOR AFR.AMER. > 60 ML/MIN (>=60 (CALC)); GFR OTHER RACES > 60 ML/MIN (>=60 (CALC)); MAGNESIUM 2.1 mg/dL (1.6-2.3); SODIUM 138 mmol/l (137-146)
[2023-06-28 05:48] LABS: ANION GAP 4 (6-22 (CALC)); BILIRUBIN, TOTAL 0.1 mg/dL (0.02-1.3); POTASSIUM 2.9 mmol/l (3.5-5.1); SGOT/AST 67 u/l (14-36)
[2023-06-28 07:44] VITALS: BP 111/64
[2023-06-28] MEDS ORDERED: POTASSIUM CHLORIDE 20 MEQ/TAB PO SCH ×2 (09:30→11:30)
[2023-06-28 11:03] VITALS: BP 113/86
[2023-06-28 11:04] VITALS: BP 115/83
[2023-06-28 15:12] VITALS: BP 134/82
[2023-06-28] MEDS ORDERED: metroNIDAZOLE 500 MG/TAB PO SCH (15:42)
[2023-06-28 20:24] VITALS: BP 141/83
[2023-06-29 00:29] VITALS: BP 128/76
[2023-06-29 04:42] VITALS: BP 135/84
[2023-06-29 06:08] LABS: BASO% 0.4 % (0-3); EOS% 0.3 % (0-8); HEMATOCRIT 34.1 % (37.0-47.0); HEMOGLOBIN 11.3 g/dl (12.0-16.0); IMMATURE GRANULOCYTES 0.4 % (0.0-5.0); LYMPH% 27.6 % (15-41); MEAN CORPUSCULAR HGB 32.5 pG CALC (26.0-32.0); MEAN CORPUSCULAR HGB CONC 33.1 g/dL CAL (32.0-36.0); MONO% 7.9 % (2-13); NEUT# 4.31 thou/uL (2.00-7.15); NEUT% 63.4 % (42-76); RED BLOOD COUNT 3.48 mill/uL (4.20-5.60); RED CELL DISTRI WIDTH 12.3 % (11.5-15.5)
[2023-06-29 06:19] LABS: ALBUMIN 2.6 g/dL (3.2-5.0); ALKALINE PHOSPHATASE 120 u/l (38-126); BUN 11 mg/dL (7-17); BUN/CREATININE RATIO 24 (12-20 (CALC)); CARBON DIOXIDE 29 mmol/l (22-30); CHLORIDE 106 mmol/l (95-108); CREATININE 0.5 mg/dL (0.5-1.0); GFR FOR AFR.AMER. > 60 ML/MIN (>=60 (CALC)); GFR OTHER RACES > 60 ML/MIN (>=60 (CALC)); SODIUM 136 mmol/l (137-146); TOTAL PROTEIN 4.7 g/dL (6.3-8.2)
[2023-06-29 06:25] LABS: ANION GAP 5 (6-22 (CALC)); POTASSIUM 3.8 mmol/l (3.5-5.1); SGOT/AST 168 u/l (14-36)
[2023-06-29 07:22] VITALS: BP 141/76
[2023-06-29] MEDS ORDERED: POTASSIUM CHLORIDE 20 MEQ/TAB PO SCH (09:00)
[2023-06-29 12:59] LABS: URINE BILIRUBIN - DIPSTICK Negative (NEGATIVE); URINE BLOOD DIPSTICK Negative (NEGATIVE); URINE GLUCOSE - DIPSTICK Negative (NEGATIVE); URINE KETONE Negative (NEGATIVE); URINE NITRITE - DIPSTICK Negative (Negative); URINE PH 7.5 (4.5-8.0); URINE PROTEIN - DIPSTICK Negative (NEG-TRACE); URINE UROBILINOGEN - DIPSTICK 0.2 E.U./dL (0.2)
[2023-06-29] MEDS ORDERED: METRONIDAZOLE500 MG PO (12:59)
[2023-06-29 13:00] LABS: URINE COLOR Yellow; URINE LEUK ESTERASE Small (NEGATIVE)
[2023-06-29] MEDS ORDERED: LEVEMIR100 UNIT SC ×2 (13:01)
[2023-06-29 13:03] LABS: URINE BACTERIA FEW hpf; URINE EPITHELIAL CELLS FEW EPI/hpf (0-FEW)
[2023-06-29] MEDS ORDERED: NOVOLIN N100 UNIT/3 SC (13:10)
[2023-06-29] MEDS ORDERED: INSULIN DETEMIR 100 UNITS/ML SC SCH (21:00)
[2023-06-30] MEDS ORDERED: INSULIN DETEMIR 100 UNITS/ML SC SCH (09:00)
== END 2023-06-29 14:55 | disposition home or self-care (01) | DRG 638 ==
LOC: ED 07:09 → ED-I 08:10 → ED 13:56 → MS2 13:57 → ICU 13:57 → MS2 06-27 15:15
PROVIDERS: Emergency Medicine; Nurse Practitioner Family; Student in an Organized Health Care Education/Training Program; ADMIT Student in an Organized Health Care Education/Training Program; ATTEND Student in an Organized Health Care Education/Training Program
PROC: 06HY33Z Insertion of Infusion Device into Lower Vein, Percutaneous Approach (ICD-10-PCS; principal; 2023-06-26)
PROC: 0T9B70Z Drainage of Bladder with Drainage Device, Via Natural or Artificial Opening (ICD-10-PCS; 2023-06-26)
DX: E10.10 Type 1 diabetes mellitus with ketoacidosis without coma (principal); E87.1 Hypo-osmolality and hyponatremia; N17.9 Acute kidney failure, unspecified; E87.5 Hyperkalemia; E83.41 Hypermagnesemia; E86.9 Volume depletion, unspecified; R33.9 Retention of urine, unspecified; N76.0 Acute vaginitis; T38.3X6A Underdosing of insulin and oral hypoglycemic [antidiabetic] drugs, initial encounter; Z91.128 Patient's intentional underdosing of medication regimen for other reason; Z79.4 Long term (current) use of insulin
CPT/HCPCS: J1650; Q9967

== ENCOUNTER 2023-11-30 09:23 | Inpatient (IN) | payer OTHER ==
[2023-11-30] VITALS (30 sets, daily range): BP systolic 114–165; BP diastolic 45–83
[~2023-11-30] VITALS: Ht 160 cm; Wt 60.0 kg
[~2023-11-30 09:23] MED LIST changes: +LEVEMIR100 UNIT SC; +METRONIDAZOLE500 MG PO; +NOVOLIN 70/30 RELION SC; +NOVOLIN R100 UNIT/1
[2023-11-30] MEDS ORDERED: SODIUM CHLORIDE 0.9% 1,000 ML IV STA ×2 (09:28→12:40)
[2023-11-30] MEDS ORDERED: ONDANSETRON HCl 4 MG/2 ML SDV IV STA (09:28)
[2023-11-30] MEDS ORDERED: INSULIN REGULAR (HUMAN) 100 UNIT/ML INJ IV ONE (09:45)
[2023-11-30 10:03] LABS: HEMATOCRIT 43.6 % (37.0-47.0); HEMOGLOBIN 13.8 g/dl (12.0-16.0); IMMATURE GRANULOCYTES 2.6 % (0.0-5.0); MEAN CELL VOLUME 102.3 fL CALC (80.0-100.0); MEAN CORPUSCULAR HGB 32.4 pG CALC (26.0-32.0); MEAN CORPUSCULAR HGB CONC 31.7 g/dL CAL (32.0-36.0); PLATELET COUNT 587 thou/uL (130-400); RED BLOOD COUNT 4.26 mill/uL (4.20-5.60); RED CELL DISTRI WIDTH 12.6 % (11.5-15.5)
[2023-11-30 10:14] LABS: MANUAL DIFFERENTIAL YES
[2023-11-30 10:26] LABS: BAND 2 % (0-8)
[2023-11-30 10:35] LABS: ALBUMIN 4.8 g/dL (3.2-5.0); BUN 28 mg/dL (7-17); BUN/CREATININE RATIO 33 (12-20 (CALC)); CHLORIDE 105 mmol/l (95-108); CREATININE 0.9 mg/dL (0.5-1.0); ESTIMATED GFR 81 ML/MIN (>=90 (CALC)); LIPASE 43 u/l (23-300); SGOT/AST 32 u/l (14-36); SODIUM 138 mmol/l (137-146); TOTAL PROTEIN 7.5 g/dL (6.3-8.2)
[2023-11-30 11:19] LABS: URINE BILIRUBIN - DIPSTICK Negative (NEGATIVE); URINE BLOOD DIPSTICK Moderate (NEGATIVE); URINE COLOR Yellow; URINE GLUCOSE - DIPSTICK 500 mg/dL (NEGATIVE); URINE KETONE >=160 mg/dL (NEGATIVE); URINE LEUK ESTERASE Small (NEGATIVE); URINE NITRITE - DIPSTICK Negative (Negative); URINE PROTEIN - DIPSTICK Negative (NEG-TRACE); URINE SPECIFIC GRAVITY 1.025; URINE UROBILINOGEN - DIPSTICK 0.2 E.U./dL (0.2)
[2023-11-30 11:20] LABS: URINE BACTERIA FEW hpf; URINE EPITHELIAL CELLS FEW EPI/hpf (0-FEW)
[2023-11-30 11:25] LABS: ALKALINE PHOSPHATASE 197 u/l (38-126); ANION GAP 33 (6-22 (CALC)); CARBON DIOXIDE < 5 mmol/l (22-30); POTASSIUM 5.3 mmol/l (3.5-5.1)
[2023-11-30] MEDS ORDERED: INSULIN REGULAR (HUMAN) IN SOD 100 ML IV PRN ×2 (12:40→15:25)
[2023-11-30] MEDS ORDERED: POTASSIUM CHLORIDE 40 MEQ in SODIUM CHLORIDE 0.45% 1,000 ML IV PRN (15:25)
[2023-11-30] MEDS ORDERED: SODIUM CHLORIDE 0.9% 1,000 ML IV PRN (15:25)
[2023-11-30] MEDS ORDERED: SODIUM CHLORIDE 0.45% 1,000 ML IV PRN (15:25)
[2023-11-30] MEDS ORDERED: D5 1/2 NaCL W/KCL 40MEQ 1,000 ML IV PRN (15:25)
[2023-11-30] MEDS ORDERED: DEXTROSE 5% w/NACL 0.45 1,000 ML IV PRN (15:25)
[2023-11-30] MEDS ORDERED: DEXTROSE 250 ML IV PRN (15:40)
[2023-11-30] MEDS ORDERED: ONDANSETRON HCl 4 MG/2 ML SDV IV PRN (15:45)
[2023-11-30] MEDS ORDERED: FAMOTIDINE 10MG/ML 2ML SDV IV SCH (16:00)
[2023-11-30 16:21] LABS: HEMOGLOBIN 12.7 g/dl (12.0-16.0); MEAN CELL VOLUME 100.8 fL CALC (80.0-100.0); MEAN CORPUSCULAR HGB 32.8 pG CALC (26.0-32.0); MEAN CORPUSCULAR HGB CONC 32.6 g/dL CAL (32.0-36.0); RED BLOOD COUNT 3.87 mill/uL (4.20-5.60); RED CELL DISTRI WIDTH 12.6 % (11.5-15.5)
[2023-11-30 16:49] LABS: CREATININE 0.9 mg/dL (0.5-1.0)
[2023-11-30 16:50] LABS: POTASSIUM 4.1 mmol/l (3.5-5.1)
[2023-11-30] MEDS ORDERED: ACETAMINOPHEN 325 MG/TAB PO PRN (17:55)
[2023-11-30 19:47] LABS: CREATININE 0.8 mg/dL (0.5-1.0); POTASSIUM 4.2 mmol/l (3.5-5.1)
[2023-11-30] MEDS ORDERED: VANCOMYCIN HCL 1 GM in SODIUM CHLORIDE 0.9% 250 ML IV SCH (21:00)
[2023-12-01] VITALS (31 sets, daily range): BP systolic 132–186; BP diastolic 70–112
[2023-12-01 00:09] LABS: CREATININE 0.7 mg/dL (0.5-1.0); POTASSIUM 4.5 mmol/l (3.5-5.1)
[2023-12-01 04:38] LABS: HEMOGLOBIN 13.1 g/dl (12.0-16.0); MEAN CELL VOLUME 97.4 fL CALC (80.0-100.0); MEAN CORPUSCULAR HGB 33.6 pG CALC (26.0-32.0); MEAN CORPUSCULAR HGB CONC 34.5 g/dL CAL (32.0-36.0); RED BLOOD COUNT 3.9 mill/uL (4.20-5.60)
[2023-12-01 04:58] LABS: CREATININE 0.7 mg/dL (0.5-1.0); POTASSIUM 4.3 mmol/l (3.5-5.1)
[2023-12-01 04:59] LABS: CHOLESTEROL HDL RATIO 1.5 (<4.4 (CALC)); MAGNESIUM 1.9 mg/dL (1.6-2.3)
[2023-12-01] MEDS ORDERED: DEXTROSE 250 ML IV PRN ×2 (05:40)
[2023-12-01] MEDS ORDERED: INSULIN LISPRO 100 UNITS/ML ML SC SCH (07:00)
[2023-12-01] MEDS ORDERED: INSULIN DETEMIR 100 UNITS/ML SC SCH (07:00)
[2023-12-01 08:21] LABS: CREATININE 0.5 mg/dL (0.5-1.0); POTASSIUM 4.8 mmol/l (3.5-5.1)
[2023-12-01] MEDS ORDERED: VANCOMYCIN HCL 1 GM in SODIUM CHLORIDE 0.9% 250 ML IV SCH (09:00)
[2023-12-01] MEDS ORDERED: SODIUM CHLORIDE 0.45% 1,000 ML IV PRN (10:00)
[2023-12-01] MEDS ORDERED: hydrALAZINE HCL 20 MG/ML VIAL(1 ML) IV PRN (10:05)
[2023-12-01] MEDS ORDERED: INSULIN REGULAR (HUMAN) IN SOD 100 ML IV SCH (12:40)
[2023-12-01 13:00] LABS: CREATININE 0.5 mg/dL (0.5-1.0); POTASSIUM 4.5 mmol/l (3.5-5.1)
[2023-12-01] MEDS ORDERED: LOSARTAN Potassium 50 MG/TAB PO SCH (17:22)
[2023-12-01] MEDS ORDERED: cefTRIAXone SODIUM 2 GM in SODIUM CHLORIDE 0.9% 100 ML IV SCH (20:00)
[2023-12-01] MEDS ORDERED: SODIUM CHLORIDE 0.9% 0 ML IV ONE (21:30)
[2023-12-02] VITALS (33 sets, daily range): BP systolic 130–171; BP diastolic 68–105
[2023-12-02 04:57] LABS: BASO% 0.2 % (0-3); EOS% 0.6 % (0-8); HEMATOCRIT 36.1 % (37.0-47.0); HEMOGLOBIN 12.3 g/dl (12.0-16.0); IMMATURE GRANULOCYTES 0.2 % (0.0-5.0); MEAN CELL VOLUME 96.3 fL CALC (80.0-100.0); MEAN CORPUSCULAR HGB 32.8 pG CALC (26.0-32.0); MEAN CORPUSCULAR HGB CONC 34.1 g/dL CAL (32.0-36.0); MONO% 7.1 % (2-13); NEUT# 10.47 thou/uL (2.00-7.15); NEUT% 78.9 % (42-76); RED BLOOD COUNT 3.75 mill/uL (4.20-5.60); RED CELL DISTRI WIDTH 12.9 % (11.5-15.5)
[2023-12-02 05:07] LABS: CREATININE 0.5 mg/dL (0.5-1.0); MAGNESIUM 1.8 mg/dL (1.6-2.3); POTASSIUM 3.6 mmol/l (3.5-5.1)
[2023-12-02 05:11] LABS: ALBUMIN 3.5 g/dL (3.2-5.0); BILIRUBIN, TOTAL 0.4 mg/dL (0.02-1.3)
[2023-12-02] MEDS ORDERED: METOPROLOL TARTRATE 5 MG/5 ML VIAL IV SCH (06:20)
[2023-12-02] MEDS ORDERED: SODIUM CHLORIDE 0.9% 500 ML IV ONE (06:20)
[2023-12-02] MEDS ORDERED: STERILE WATER FOR IRRIGATION 1,000 ML BTL IR ONE (07:40)
[2023-12-02] MEDS ORDERED: SODIUM CHLORIDE 1,000 ML BTL IR ONE (07:40)
[2023-12-02] MEDS ORDERED: PROPOFOL 200 MG/20 ML VIAL IV ONE (07:54)
[2023-12-02] MEDS ORDERED: MIDAZOLAM HCL 2 MG/2 ML VIAL IV ONE (07:54)
[2023-12-02] MEDS ORDERED: traMADol HCL 50 MG/TAB PO PRN (08:50)
[2023-12-02] MEDS ORDERED: CARVEDILOL 6.25 MG/TAB PO SCH ×2 (09:00→21:17)
[2023-12-02] MEDS ORDERED: VANCOMYCIN HCL 1 GM in SODIUM CHLORIDE 0.9% 250 ML IV SCH (09:00)
[2023-12-02] MEDS ORDERED: LIDOcaine HCl 1% (Local Anesth.) 20 ML VIAL ONE (09:09)
[2023-12-02] MEDS ORDERED: MORPHINE SULFATE 4 MG/ML VIAL IV PRN (09:15)
[2023-12-03] VITALS (16 sets, daily range): BP systolic 135–181; BP diastolic 76–106
[2023-12-03] MEDS ORDERED: SODIUM CHLORIDE 0.9% 250 ML IV ONE (04:16)
[2023-12-03] MEDS ORDERED: VANCOMYCIN HCL 1 GM in SODIUM CHLORIDE 0.9% 250 ML IV SCH (05:00)
[2023-12-03 07:36] LABS: BASO% 0.1 % (0-3); EOS% 3.2 % (0-8); HEMOGLOBIN 11.7 g/dl (12.0-16.0); IMMATURE GRANULOCYTES 0.6 % (0.0-5.0); LYMPH% 23.8 % (15-41); MEAN CELL VOLUME 96.7 fL CALC (80.0-100.0); MEAN CORPUSCULAR HGB 32.3 pG CALC (26.0-32.0); MEAN CORPUSCULAR HGB CONC 33.4 g/dL CAL (32.0-36.0); MONO% 7.6 % (2-13); NEUT# 5.69 thou/uL (2.00-7.15); NEUT% 64.7 % (42-76); RED BLOOD COUNT 3.62 mill/uL (4.20-5.60); RED CELL DISTRI WIDTH 12.9 % (11.5-15.5)
[2023-12-03 08:04] LABS: BILIRUBIN, TOTAL 0.5 mg/dL (0.02-1.3); CREATININE 0.4 mg/dL (0.5-1.0); MAGNESIUM 1.9 mg/dL (1.6-2.3); POTASSIUM 3.8 mmol/l (3.5-5.1); TOTAL PROTEIN 5.5 g/dL (6.3-8.2)
[2023-12-03] MEDS ORDERED: LOSARTAN POTASS50 MG PO (12:08)
[2023-12-03] MEDS ORDERED: CARVEDILOL6.25 MG PO (12:09)
[2023-12-03] MEDS ORDERED: NOVOLIN 70/30 RELION SC (12:10)
[2023-12-03] MEDS ORDERED: VIBRAMYCIN100 M2 PO (12:10)
[2023-12-03] MEDS ORDERED: TRAMADOL HCL50 MG PO (12:11)
== END 2023-12-03 13:03 | disposition home or self-care (01) | DRG 630 ==
LOC: ED 09:23 → ED-I 11:47 → ED 11:47 → ICU 12:41
PROVIDERS: Emergency Medicine; Student in an Organized Health Care Education/Training Program; ADMIT Internal Medicine; ATTEND Internal Medicine
PROC: 0H9T0ZZ Drainage of Right Breast, Open Approach (ICD-10-PCS; principal; 2023-12-01)
DX: E10.10 Type 1 diabetes mellitus with ketoacidosis without coma (principal); N61.1 Abscess of the breast and nipple; F15.10 Other stimulant abuse, uncomplicated; I10 Essential (primary) hypertension; K08.409 Partial loss of teeth, unspecified cause, unspecified class; F17.200 Nicotine dependence, unspecified, uncomplicated; T38.3X6A Underdosing of insulin and oral hypoglycemic [antidiabetic] drugs, initial encounter; Z91.128 Patient's intentional underdosing of medication regimen for other reason; Z79.4 Long term (current) use of insulin; Z21 Asymptomatic human immunodeficiency virus [HIV] infection status

== ENCOUNTER 2024-06-07 14:33 | Inpatient (IN) | payer OTHER ==
[2024-06-07] VITALS (31 sets, daily range): BP systolic 113–167; BP diastolic 48–135
[~2024-06-07] VITALS: Ht 160 cm; Wt 52.0 kg
[~2024-06-07 14:33] MED LIST changes: +CARVEDILOL6.25 MG PO; +LOSARTAN POTASS50 MG PO
[2024-06-07] MEDS ORDERED: LACTATED RINGER'S 1,000 ML IV ONE ×3 (14:35→16:15)
[2024-06-07] MEDS ORDERED: ONDANSETRON HCl 4 MG/2 ML SDV IV ONE (14:40)
[2024-06-07] MEDS ORDERED: SODIUM BICARBONATE 150 ML in DEXTROSE 5% 850 ML IV ONE (15:20)
[2024-06-07 15:46] LABS: BASO% 0.2 % (0-3); EOS% 0.1 % (0-8); HEMOGLOBIN 13.3 g/dl (12.0-16.0); IMMATURE GRANULOCYTES 1.6 % (0.0-5.0); LYMPH% 3.7 % (15-41); MEAN CELL VOLUME 100.2 fL CALC (80.0-100.0); MEAN CORPUSCULAR HGB 32.4 pG CALC (26.0-32.0); MEAN CORPUSCULAR HGB CONC 32.4 g/dL CAL (32.0-36.0); MONO% 2.9 % (2-13); NEUT# 45.41 thou/uL (2.00-7.15); NEUT% 91.5 % (42-76); RED BLOOD COUNT 4.1 mill/uL (4.20-5.60); RED CELL DISTRI WIDTH 12.4 % (11.5-15.5)
[2024-06-07 15:52] LABS: HEMATOCRIT 41.1 % (37.0-47.0)
[2024-06-07] MEDS ORDERED: VANCOMYCIN HCL 1 GM in SODIUM CHLORIDE 0.9% 500 ML IV ONE (15:55)
[2024-06-07] MEDS ORDERED: PIPERACILLIN Sodium-Tazobactam 3.375 GM in SODIUM CHLORIDE 0.9% 100 ML IV ONE (15:55)
[2024-06-07 15:56] LABS: HCG SERUM/URINE (NEG/POS) NEGATIVE (NEGATIVE)
[2024-06-07 16:00] LABS: BILIRUBIN, TOTAL 0.6 mg/dL (0.02-1.3); BUN 25 mg/dL (7-17); CHLORIDE 92 mmol/l (95-108); CPK 38 u/l (30-135); LIPASE 699 u/l (23-300); SGOT/AST 26 u/l (14-36); SODIUM 130 mmol/l (137-146)
[2024-06-07 16:17] LABS: ALBUMIN 4.1 g/dL (3.2-5.0); ALKALINE PHOSPHATASE 237 u/l (38-126); ANION GAP 39 (6-22 (CALC)); BUN/CREATININE RATIO 15 (12-20 (CALC)); CREATININE 1.7 mg/dL (0.5-1.0); ESTIMATED GFR 37 ML/MIN (>=90 (CALC)); MAGNESIUM 2.9 mg/dL (1.6-2.3); POTASSIUM 5.6 mmol/l (3.5-5.1); TOTAL PROTEIN 6.7 g/dL (6.3-8.2)
[2024-06-07 16:18] LABS: CARBON DIOXIDE < 5 mmol/l (22-30)
[2024-06-07] MEDS ORDERED: INSULIN REGULAR (HUMAN) IN SOD 100 ML IV ONE (16:20)
[2024-06-07] MEDS ORDERED: INSULIN REGULAR (HUMAN) 100 UNIT/ML INJ IV ONE (16:20)
[2024-06-07 17:02] LABS: URINE BLOOD DIPSTICK Small (NEGATIVE); URINE COLOR Yellow; URINE GLUCOSE - DIPSTICK 500 mg/dL (NEGATIVE); URINE KETONE >=160 mg/dL (NEGATIVE); URINE LEUK ESTERASE Negative (NEGATIVE); URINE NITRITE - DIPSTICK Negative (Negative); URINE PROTEIN - DIPSTICK 100 mg/dL (NEG-TRACE); URINE SPECIFIC GRAVITY 1.015; URINE UROBILINOGEN - DIPSTICK 0.2 E.U./dL (0.2)
[2024-06-07 17:04] LABS: URINE RBC 0-2 RBC/hpf (0-5)
[2024-06-07 17:06] LABS: URINE SQUAMOUS EPITHELIAL CELL FEW EPI/hpf (0-FEW); URINE TRANSITIONAL EPI. CELLS FEW hpf; URINE YEAST RARE hpf
[2024-06-07 17:08] LABS: URINE BACTERIA FEW hpf; URINE COARSE GRANULAR CAST FEW lpf
[2024-06-07 18:50] LABS: ALBUMIN 3.7 g/dL (3.2-5.0); ALKALINE PHOSPHATASE 195 u/l (38-126); BILIRUBIN, TOTAL 0.5 mg/dL (0.02-1.3); BUN 24 mg/dL (7-17); BUN/CREATININE RATIO 19 (12-20 (CALC)); CHLORIDE 100 mmol/l (95-108); CREATININE 1.3 mg/dL (0.5-1.0); ESTIMATED GFR 52 ML/MIN (>=90 (CALC)); SGOT/AST 27 u/l (14-36); SODIUM 136 mmol/l (137-146); TOTAL PROTEIN 6.2 g/dL (6.3-8.2)
[2024-06-07 19:00] LABS: ANION GAP 35 (6-22 (CALC)); POTASSIUM 4.3 mmol/l (3.5-5.1)
[2024-06-07 19:01] LABS: CARBON DIOXIDE < 5 mmol/l (22-30)
[2024-06-07] MEDS ORDERED: DEXTROSE 5% w/NACL 0.45 1,000 ML IV PRN (19:10)
[2024-06-07] MEDS ORDERED: D5 1/2 NaCL W/KCL 20MEQ 1,000 ML IV PRN (19:10)
[2024-06-07] MEDS ORDERED: SODIUM CHLORIDE 0.9% 1,000 ML IV PRN (19:10)
[2024-06-07] MEDS ORDERED: POTASSIUM CHLORIDE IN NACL 1,000 ML IV PRN (19:10)
[2024-06-07] MEDS ORDERED: POTASSIUM CHLORIDE 20MEQ 100 ML IV PRN (19:10)
[2024-06-07] MEDS ORDERED: INSULIN REGULAR (HUMAN) IN SOD 100 ML IV PRN (19:10)
[2024-06-07] MEDS ORDERED: SODIUM CHLORIDE 0.45% 1,000 ML IV PRN (19:10)
[2024-06-07 20:08] LABS: BUN 24 mg/dL (7-17); BUN/CREATININE RATIO 20 (12-20 (CALC)); CHLORIDE 102 mmol/l (95-108); CREATININE 1.2 mg/dL (0.5-1.0); ESTIMATED GFR 57 ML/MIN (>=90 (CALC)); POTASSIUM 4.2 mmol/l (3.5-5.1); SODIUM 136 mmol/l (137-146)
[2024-06-07 20:19] LABS: ANION GAP 33 (6-22 (CALC)); CARBON DIOXIDE < 5 mmol/l (22-30)
[2024-06-07] MEDS ORDERED: PIPERACILLIN Sodium-Tazobactam 3.375 GM in SODIUM CHLORIDE 0.9% 100 ML IV SCH (21:00)
[2024-06-07] MEDS ORDERED: SODIUM CHLORIDE 0.9% 250 ML IV PRN (21:50)
[2024-06-07 22:20] LABS: ALBUMIN 3.2 g/dL (3.2-5.0); BILIRUBIN, TOTAL 0.5 mg/dL (0.02-1.3); POTASSIUM 3.7 mmol/l (3.5-5.1); TOTAL PROTEIN 5.7 g/dL (6.3-8.2)
[2024-06-07] MEDS ORDERED: hydrALAZINE HCL 20 MG/ML VIAL(1 ML) IV PRN (23:00)
[2024-06-08] VITALS (86 sets, daily range): BP systolic 109–160; BP diastolic 45–97
[2024-06-08 02:16] LABS: ALBUMIN 3.1 g/dL (3.2-5.0); BILIRUBIN, TOTAL 0.4 mg/dL (0.02-1.3); CREATININE 0.8 mg/dL (0.5-1.0); POTASSIUM 3.8 mmol/l (3.5-5.1); TOTAL PROTEIN 5.7 g/dL (6.3-8.2)
[2024-06-08] MEDS ORDERED: SODIUM CHLORIDE 0.9% 1,000 ML IV PRN (04:50)
[2024-06-08] MEDS ORDERED: INSULIN GLARGINE 100 UNITS/ML SC SCH (05:00)
[2024-06-08 06:21] LABS: CREATININE 0.7 mg/dL (0.5-1.0); POTASSIUM 3.5 mmol/l (3.5-5.1)
[2024-06-08 08:38] LABS: HEMOGLOBIN 11.9 g/dl (12.0-16.0); IMMATURE GRANULOCYTES 0.6 % (0.0-5.0); MEAN CORPUSCULAR HGB 32.5 pG CALC (26.0-32.0); MEAN CORPUSCULAR HGB CONC 35.5 g/dL CAL (32.0-36.0); PLATELET COUNT 362 thou/uL (130-400); RED BLOOD COUNT 3.66 mill/uL (4.20-5.60); RED CELL DISTRI WIDTH 12.6 % (11.5-15.5)
[2024-06-08 08:46] LABS: HEMATOCRIT 33.5 % (37.0-47.0); MANUAL DIFFERENTIAL YES; MEAN CELL VOLUME 91.5 fL CALC (80.0-100.0)
[2024-06-08] MEDS ORDERED: ACETAMINOPHEN 325 MG/TAB PO PRN (09:00)
[2024-06-08 09:20] LABS: BAND 0 % (0-8)
[2024-06-08 09:21] LABS: PLATELET ESTIMATE NORMAL
[2024-06-08] MEDS ORDERED: PANTOPRAZOLE SODIUM Sesquihydr 40 MG/TAB PO SCH (14:30)
[2024-06-08] MEDS ORDERED: DEXTROSE 250 ML IV PRN (17:20)
[2024-06-08] MEDS ORDERED: INSULIN LISPRO 100 UNITS/ML ML SC SCH (21:00)
[2024-06-09] VITALS (32 sets, daily range): BP systolic 121–181; BP diastolic 63–95
[2024-06-09 04:35] LABS: HEMATOCRIT 30.7 % (37.0-47.0); HEMOGLOBIN 10.7 g/dl (12.0-16.0); MEAN CORPUSCULAR HGB 32.4 pG CALC (26.0-32.0); MEAN CORPUSCULAR HGB CONC 34.9 g/dL CAL (32.0-36.0); RED BLOOD COUNT 3.3 mill/uL (4.20-5.60); RED CELL DISTRI WIDTH 13.5 % (11.5-15.5)
[2024-06-09 04:44] LABS: ALBUMIN 2.7 g/dL (3.2-5.0); BILIRUBIN, TOTAL 0.3 mg/dL (0.02-1.3); CREATININE 0.5 mg/dL (0.5-1.0); POTASSIUM 3.4 mmol/l (3.5-5.1)
[2024-06-09 05:06] LABS: MAGNESIUM 2.1 mg/dL (1.6-2.3)
[2024-06-09] MEDS ORDERED: KEFLEX500 MG PO (07:24)
[2024-06-09] MEDS ORDERED: POTASSIUM CHLORIDE 20 MEQ/TAB PO SCH (08:00)
[2024-06-10] MEDS ORDERED: LEVOFLOXACIN500MG PO (14:07)
== END 2024-06-09 13:00 | disposition home or self-care (01) | DRG 637 ==
LOC: ED 14:33 → ED-I 18:39 → ED 18:52 → ICU 18:53
PROVIDERS: Family Medicine; ADMIT Internal Medicine; ATTEND Internal Medicine
PROC: 0T9B70Z Drainage of Bladder with Drainage Device, Via Natural or Artificial Opening (ICD-10-PCS; principal; 2024-06-07)
DX: E10.10 Type 1 diabetes mellitus with ketoacidosis without coma (principal); G93.41 Metabolic encephalopathy; K85.90 Acute pancreatitis without necrosis or infection, unspecified; N17.9 Acute kidney failure, unspecified; N39.0 Urinary tract infection, site not specified; B96.20 Unspecified Escherichia coli [E. coli] as the cause of diseases classified elsewhere; Z16.12 Extended spectrum beta lactamase (ESBL) resistance; Z21 Asymptomatic human immunodeficiency virus [HIV] infection status; I10 Essential (primary) hypertension; F15.10 Other stimulant abuse, uncomplicated; Z79.4 Long term (current) use of insulin
CPT/HCPCS: J1815; J2405; J2543; J3370; Q9967

== ENCOUNTER 2024-06-19 20:10 | Emergency (ER) | payer OTHER ==
[~2024-06-19] VITALS: Ht 160 cm; Wt 65.0 kg
[~2024-06-19 20:10] MED LIST changes: +LEVOFLOXACIN500MG PO
[2024-06-19] MEDS ORDERED: DEXTROSE 10% 500 ML IV ONE (20:20)
[2024-06-19 22:06] VITALS: BP 148/83
[2024-06-19 22:09] VITALS: BP 148/83
== END 2024-06-19 22:30 | disposition home or self-care (01) | DRG 639 ==
LOC: ED 20:10
DX: E11.649 Type 2 diabetes mellitus with hypoglycemia without coma (principal); I10 Essential (primary) hypertension; F17.200 Nicotine dependence, unspecified, uncomplicated; Z21 Asymptomatic human immunodeficiency virus [HIV] infection status; Z79.4 Long term (current) use of insulin

== ENCOUNTER 2024-07-18 06:22 | Emergency (ER) | payer SELFPAY ==
[~2024-07-18] VITALS: Ht 160 cm; Wt 60.0 kg
[2024-07-18] MEDS ORDERED: DEXTROSE 5% / 0.9% NACL 1,000 ML IV PRN (06:30)
== END 2024-07-18 06:36 | disposition left against medical advice (07) | DRG 639 ==
LOC: ED 06:22
DX: E10.649 Type 1 diabetes mellitus with hypoglycemia without coma (principal); T38.3X5A Adverse effect of insulin and oral hypoglycemic [antidiabetic] drugs, initial encounter; I10 Essential (primary) hypertension; Z79.4 Long term (current) use of insulin; Z21 Asymptomatic human immunodeficiency virus [HIV] infection status; F17.200 Nicotine dependence, unspecified, uncomplicated; Z53.29 Procedure and treatment not carried out because of patient's decision for other reasons